=== PATIENT | male | born 1945 | race Caucasian/White ===

== ENCOUNTER 2023-11-27 16:12 | Outpatient (REF) | payer MEDICARE, SELFPAY ==
[2023-11-27 19:50] LABS: Anion Gap 7.6 mmol/L (3-11); BUN 12 mg/dL (7-18); CO2 30.4 mmol/L (21.0-32.0); CREATININE 0.8 mg/dL (0.70-1.30); Calcium 9.4 mg/dL (8.5-10.1); Chloride 99 mmol/L (98-107); Estimated GFR 89.47 (mL/min/1.73m2); Glucose 108 mg/dL (74-106); Potassium 4.4 mmol/L (3.5-5.1); Sodium 137 mmol/L (136-145)
== END 2023-11-27 16:13 | disposition home or self-care (01) ==
LOC: NCHCN 16:12
PROVIDERS: Visit Provider Family Medicine
DX: I10 Essential (primary) hypertension (principal)
CPT/HCPCS: 80048

== ENCOUNTER 2024-04-15 14:58 | Outpatient (REF) | payer MEDICARE, SELFPAY ==
--- OUTSIDE RECORDS SUMMARY | 2024-04-15 15:00 | XMS_ITS | Data Portability ---
Author Organization [facility] Address [address] [place] [address] Care Team Providers Care Appointment Manager Name Role Phone GHANSHYAM GORE Primary Care Provider Assessment Encounter Date Assessment Date Assessment LastModified by Organization Details LastModified Time 09/26/2022 09/26/2022 Patient had adult health exam in clinic on today's date. Recommend 150 minutes of physical activity per week. Recommend patient ingest at least 5 servings of fruits and vegetables per day. Encourage patient on proper hydration. Discussed preventative care including colorectal screening and immunizations. Importance of living will and advanced directives discussed. Not available 09/26/2022 07:50:32 Plan of Treatment Reminders Order Date Submit Date Provider Last Modified By Organization Details Last Modified Time Details Appointments None recorde d. Lab None recorde d. Referral gastroe nterolo gist referra l 2022 023 [facility], [address], [place], [address], 3 09:16:00 Procedures None recorde d. Surgeries None recorde d. Imaging CT, chest + abdomen + pelvis, w/wo contras t - uninten tional weight loss for last few months; concern for maligna ncy [email or web address] [facility], [address], [address], [place], [address], 3 16:10:29 CT, abdomen + pelvis, w/wo contras t 2022 023 [email or web address] [facility] - [address], [place], [address], 3 16:52:10 CT, abdomen + pelvis, w/wo contras t 2022 023 [email or web address] [email or web address] [facility], [address], [address], [place], [address], 3 16:52:09 Medication Orders Protoni x 40 mg tablet, delayed release 2022 023 [facility], [address] [place], [address], 3 07:46:30 Paxlovi d 300 mg (150 mg x 2)-100 mg tablets in a dose pack [address] [facility], [address] [place], [address], 3 16:15:02 hyoscya mine ER 0.375 mg tablet, extende d release ,12 hr [address] [facility] [address] [facility], [address] [place], [address], 3 16:30:33 Patient TargetsNo targets recorded. Patient Instructions Encounter Date Encounter Id Patient Instructions Last Modified By Organization Details Last Modified Time 09/26/2022 [id number] hearing screening* Not availa ble 09/26/2022 07:33:56 COVID-19 (coronavirus 2019) vaccine, Moderna Not available 09/26/2022 08:27:37 gastroesophageal reflux disease (GERD): care instructions Not available 09/26/2022 07:46:23 benign prostatic hyperplasia: care instructions Not available 09/26/2022 08:02:39 We discussed the following important areas of your health at today's visit: 1. Any concerns about balance and falls. 2. Any concerns about bladder control including leaking of urine. 3. Any concerns about getting adequate exercise and physical activity. Supportive programs and services are available to help you develop and maintain healthy habits in these areas. Please visit [email or web address] [email or web address] for a listing of available resources. If you have any further questions or concerns regarding the above areas of your health, please discuss at your next primary care visit or, for more urgent concerns, call us at [address] [place] [address] ([phone]) to schedule an appointment. julio Abreu Not available 09/16/2022 10:37:10 11/25/2022 [id number] Please call offi ce or seek medical attention if symptoms worsens or not improve -Patient aware of the [facility] : [facility] [address] [place] [address] mbusto Not available 11/25/2022 14:16:03 11/30/2022 [id number] abdominal pain: care instructions Not available 11/30/2022 16:41:50 12/07/2022 [id number] During your most recent Annual Preventive Visit, we discussed concerns with balance (fall preventive), bladder control (including leaking of urine) and the importance of adequate exercise and physical activity. If anything has changed or you wish to investigate other supportive programs and services available to help you develop or maintain healthy habits in these areas, please visit [email or web address] ence for a listing of available resources. If you have any further questions or concerns regarding fall prevention/balance, bladder/urine leakage or exercise, please discuss at your next primary care visit or, for more urgent concerns, call us at [address] [place] [address] ([phone]) to schedule an appointment. julio Abreu Not available 12/07/2022 07:44:29 Reason for Referral Quality Assurance Supervisor Referral for Gastroesophageal reflux disease Referring Physician: Ghanshyam Gore, Internal Medicine, Encounter Date: 09/26/2022 Results Created Date Observation Date Name Description Value Unit Range Abnormal Flag Note LastModifiedBy Organization Detail LastModifiedTime 09/13/19 23 09/12/2022 CBC WITH DIFFE RENTI AL/PL ATELE T WBC 8.3 x10e3 /uL 3.4-10 .8 Not Available [facility] ([facility]) [address] [facility], [place], [address], 09/14/2022 07:17:38 09/13/19 23 09/12/2022 CBC WITH DIFFE RENTI AL/PL ATELE T RBC 4.61 x10e6 /uL 4.14-5 .80 Not Available [facility] ([facility]) [address] [facility], [place], [address], 09/14/2022 07:17:38 09/13/19 23 09/12/2022 CBC WITH DIFFE RENTI AL/PL ATELE T hemoglobin 14.1 g/dL 13.0-1 7.7 Not Available [facility] ([facility]) [address] [place], [address], 09/14/2022 07:17:38 09/13/19 23 09/12/2022 CBC WITH DIFFE RENTI AL/PL ATELE T hematocrit 40.3 % 37.5-5 1.0 Not Available [facility] ([facility]) [address] [place], [address], 09/14/2022 07:17:38 09/13/19 23 09/12/2022 CBC WITH DIFFE RENTI AL/PL ATELE T MCV 87 fL 79-97 Not Available [facility] ([facility]) [address] [place], [address], 09/14/2022 07:17:38 09/13/19 23 09/12/2022 CBC WITH DIFFE RENTI AL/PL ATELE T MCH 30.6 pg 26.6-3 3.0 Not Available [facility] ([facility]) [address] [place], [address], 09/14/2022 07:17:38 09/13/19 23 09/12/2022 CBC WITH DIFFE RENTI AL/PL ATELE T MCHC 35.0 g/dL 31.5-3 5.7 Not Available [facility] ([facility]) [address] [facility], [place], [address], 09/14/2022 07:17:38 09/13/19 23 09/12/2022 CBC WITH DIFFE RENTI AL/PL ATELE T RDW 13.0 % 11.6-1 5.4 Not Available [facility] ([facility]) [address] [facility], [place], [address], 09/14/2022 07:17:38 09/13/19 23 09/12/2022 CBC WITH DIFFE RENTI AL/PL ATELE T platelets 218 x10e3 /uL 150-45 0 Not Available [facility] ([facility]) [address] [facility], [place], [address], 09/14/2022 07:17:38 09/13/19 23 09/12/2022 CBC WITH DIFFE RENTI AL/PL ATELE T neutrophils 65 % not estab. Not Available [facility] ([facility]) [address] [facility], [place], [address], 09/14/2022 07:17:38 09/13/19 23 09/12/2022 CBC WITH DIFFE RENTI AL/PL ATELE T lymphs 24 % not estab. Not Available [facility] ([facility]) [address] [facility], [place], [address], 09/14/2022 07:17:38 09/13/19 23 09/12/2022 CBC WITH DIFFE RENTI AL/PL ATELE T monocytes 8 % not estab. Not Available [facility] ([facility]) [address] [facility], [place], [address], 09/14/2022 07:17:38 09/13/19 23 09/12/2022 CBC WITH DIFFE RENTI AL/PL ATELE T eos 2 % not estab. Not Available [facility] ([facility]) [address] [place], [address], 09/14/2022 07:17:38 09/13/19 23 09/12/2022 CBC WITH DIFFE RENTI AL/PL ATELE T basos 1 % not estab. Not Available [facility] ([facility]) [address] [facility], [place], [address], 09/14/2022 07:17:38 09/13/19 23 09/12/2022 CBC WITH DIFFE RENTI AL/PL ATELE T immature cells INSIDE SALES Not Available [facility] ([facility]) [address] [facility], [place], [address], 09/14/2022 07:17:38 09/13/19 23 09/12/2022 CBC WITH DIFFE RENTI AL/PL ATELE T neutrophils (absolute) 5.5 x10e3 /uL 1.4-7. 0 Not Available [facility] ([facility]) [address] [place], [address], 09/14/2022 07:17:38 09/13/19 23 09/12/2022 CBC WITH DIFFE RENTI AL/PL ATELE T lymphs (absolute) 2.0 x10e3 /uL 0.7-3. 1 Not Available [facility] ([facility]) [address] [place], [address], 09/14/2022 07:17:38 09/13/19 23 09/12/2022 CBC WITH DIFFE RENTI AL/PL ATELE T monocytes(ab solute) 0.7 x10e3 /uL 0.1-0. 9 Not Available [facility] ([facility]) [address] [place], [address], 09/14/2022 07:17:38 09/13/19 23 09/12/2022 CBC WITH DIFFE RENTI AL/PL ATELE T eos (absolute) 0.2 x10e3 /uL 0.0-0. 4 Not Available [facility] ([facility]) [address] [facility], [place], [address], 09/14/2022 07:17:38 09/13/19 23 09/12/2022 CBC WITH DIFFE RENTI AL/PL ATELE T baso (absolute) 0.0 x10e3 /uL 0.0-0. 2 Not Available [facility] ([facility]) [address] [facility], [place], [address], 09/14/2022 07:17:38 09/13/19 23 09/12/2022 CBC WITH DIFFE RENTI AL/PL ATELE T immature granulocytes 0 % not estab. Not Available [facility] ([facility]) [address] [facility], [place], [address], 09/14/2022 07:17:38 09/13/19 23 09/12/2022 CBC WITH DIFFE RENTI AL/PL ATELE T immature grans (abs) 0.0 x10e3 /uL 0.0-0. 1 Not Available [facility] ([facility]) [address] [facility], [place], [address], 09/14/2022 07:17:38 09/13/19 23 09/12/2022 CBC WITH DIFFE RENTI AL/PL ATELE T NRBC INSIDE SALES Not Available [facility] ([facility]) [address] [facility], [place], [address], 09/14/2022 07:17:38 09/13/19 23 09/12/2022 CBC WITH DIFFE RENTI AL/PL ATELE T hematology comments: INSIDE SALES Not Available [facility] ([facility]) [address] [facility], [place], [address], 09/14/2022 07:17:38 09/13/19 23 09/13/2022 COMP. METAB OLIC PANEL (14) glucose 91 mg/dL 70-99 Not Available [facility] ([facility]) [address] [place], [address], 09/14/2022 07:17:39 09/13/19 23 09/13/2022 COMP. METAB OLIC PANEL (14) BUN 13 mg/dL 8-27 Not Available [facility] ([facility]) [address] [facility] [place], [address], 09/14/2022 07:17:39 09/13/19 23 09/13/2022 COMP. METAB OLIC PANEL (14) creatinine 0.76 mg/dL 0.76-1 .27 Not Available [facility] ([facility]) [address] [facility] [place], [address], 09/14/2022 07:17:39 09/13/19 23 09/13/2022 COMP. METAB OLIC PANEL (14) eGFR 91 mL/mi n/1.7 3 >59 Not Available [facility] ([facility]) [address] [facility], [place], [address], 09/14/2022 07:17:39 09/13/19 23 09/13/2022 COMP. METAB OLIC PANEL (14) BUN/creatini ne ratio 17 10-24 Not Available [facility] ([facility]) [address] [facility] [place], [address], 09/14/2022 07:17:39 09/13/19 23 09/13/2022 COMP. METAB OLIC PANEL (14) sodium 137 mmol/ L 134-14 4 Not Available [facility] ([facility]) [address] [facility] [place] [place], [address], 09/14/2022 07:17:39 09/13/19 23 09/13/2022 COMP. METAB OLIC PANEL (14) potassium 4.9 mmol/ L 3.5-5. 2 Not Available [facility] ([facility]) [address] [facility] [place], [address], 09/14/2022 07:17:39 09/13/19 23 09/13/2022 COMP. METAB OLIC PANEL (14) chloride 99 mmol/ L 96-106 Not Available [facility] ([facility]) [address] [facility] [place], [address], 09/14/2022 07:17:39 09/13/19 23 09/13/2022 COMP. METAB OLIC PANEL (14) carbon dioxide, total 26 mmol/ L 20-29 Not Available [facility] ([facility]) [address] [facility], [place], [address], 09/14/2022 07:17:39 09/13/19 23 09/13/2022 COMP. METAB OLIC PANEL (14) calcium 9.6 mg/dL 8.6-10 .2 Not Available [facility] ([facility]) [address] [facility] [place], [address], 09/14/2022 07:17:39 09/13/19 23 09/13/2022 COMP. METAB OLIC PANEL (14) protein, total 7.1 g/dL 6.0-8. 5 Not Available [facility] ([facility]) [address] [facility] [place], [address], 09/14/2022 07:17:39 09/13/19 23 09/13/2022 COMP. METAB OLIC PANEL (14) albumin 4.3 g/dL 3.7-4. 7 Not Available [facility] ([facility]) [address] [facility] [place] [place], [address], 09/14/2022 07:17:39 09/13/19 23 09/13/2022 COMP. METAB OLIC PANEL (14) globulin, total 2.8 g/dL 1.5-4. 5 Not Available [facility] ([facility]) [address] [facility] [place] [place], [address], 09/14/2022 07:17:39 09/13/19 23 09/13/2022 COMP. METAB OLIC PANEL (14) A/G ratio 1.5 1.2-2. 2 Not Available [facility] ([facility]) [address] [facility] [place] [place], [address], 09/14/2022 07:17:39 09/13/19 23 09/13/2022 COMP. METAB OLIC PANEL (14) bilirubin, total 0.5 mg/dL 0.0-1. 2 Not Available [facility] ([facility]) [address] [facility] [place], [address], 09/14/2022 07:17:39 09/13/19 23 09/13/2022 COMP. METAB OLIC PANEL (14) alkaline phosphatase 91 IU/L 44-121 Not Available [facility] ([facility]) [address] [facility], [place], [address], 09/14/2022 07:17:39 09/13/19 23 09/13/2022 COMP. METAB OLIC PANEL (14) AST (SGOT) 18 IU/L 0-40 Not Available [facility] ([facility]) [address] [facility] [place] [place], [address], 09/14/2022 07:17:39 09/13/19 23 09/13/2022 COMP. METAB OLIC PANEL (14) ALT (SGPT) 12 IU/L 0-44 Not Available [facility] ([facility]) [address] [place], [address], 09/14/2022 07:17:39 09/13/19 23 09/12/2022 UA/M W/RFL X CULTU REMALLORYI NE specific gravity 1.009 1.005- 1.030 Not Available [facility] ([facility]) [address] [place], [address], 09/14/2022 07:17:40 09/13/19 23 09/12/2022 UA/M W/RFL X CULTU RE, ROUTI NE pH 7.5 5.0-7. 5 Not Available [facility] ([facility]) [address] [place], [address], 09/14/2022 07:17:40 09/13/19 23 09/12/2022 UA/M W/RFL X CULTU RE, ROUTI NE urine-color YELLOW yellow Not Available [facility] ([facility]) [address] [place], [address], 09/14/2022 07:17:40 09/13/19 23 09/12/2022 UA/M W/RFL X CULTU RE, ROUTI NE appearance CLEAR clear Not Available [facility] ([facility]) [address] [place], [address], 09/14/2022 07:17:40 09/13/19 23 09/12/2022 UA/M W/RFL X CULTU RE, ROUTI NE WBC esterase NEGATI VE negati ve Not Available [facility] ([facility]) [address] [place], [address], 09/14/2022 07:17:40 09/13/19 23 09/12/2022 UA/M W/RFL X CULTU RE, ROUTI NE protein NEGATI VE negati ve/tra ce Not Available [facility] ([facility]) [address] [place], [address], 09/14/2022 07:17:40 09/13/19 23 09/12/2022 UA/M W/RFL X CULTU RE, ROUTI NE glucose NEGATI VE negati ve Not Available [facility] ([facility]) [address] [place], [address], 09/14/2022 07:17:40 09/13/19 23 09/12/2022 UA/M W/RFL X CULTU RE, ROUTI NE ketones NEGATI VE negati ve Not Available [facility] ([facility]) [address] [place], [address], 09/14/2022 07:17:40 09/13/19 23 09/12/2022 UA/M W/RFL X CULTU RE, ROUTI NE occult blood NEGATI VE negati ve Not Available [facility] ([facility]) [address] [facility], [place], [address], 09/14/2022 07:17:40 09/13/19 23 09/12/2022 UA/M W/RFL X CULTU RE, ROUTI NE bilirubin NEGATI VE negati ve Not Available [facility] ([facility]) [address] [facility], [place], [address], 09/14/2022 07:17:40 09/13/19 23 09/12/2022 UA/M W/RFL X CULTU RE, ROUTI NE urobilinogen ,semi-qn 0.2 mg/dL 0.2-1. 0 Not Available [facility] ([facility]) [address] [facility], [place], [address], 09/14/2022 07:17:40 09/13/19 23 09/12/2022 UA/M W/RFL X CULTU RE, ROUTI NE nitrite, urine NEGATI VE negati ve Not Available [facility] ([facility]) [address] [facility], [place], [address], 09/14/2022 07:17:40 09/13/19 23 09/12/2022 UA/M W/RFL X CULTU RE, ROUTI NE microscopic examination COMMEN T Micro scopi c follo ws if indic ated. Not Available [facility] ([facility]) [address] [facility], [place], [address], 09/14/2022 07:17:40 09/13/19 23 09/12/2022 UA/M W/RFL X CULTU RE, ROUTI NE microscopic examination SEE BELOW: Micro scopi c was indic ated and was perfo rmed. Not Available [facility] ([facility]) [address], [place], [address], 09/14/2022 07:17:40 09/13/19 23 09/12/2022 UA/M W/RFL X CULTU RE, ROUTI NE WBC NONE SEEN /hpf 0 - 5 Not Available [facility] ([facility]) [address], [place], [address], 09/14/2022 07:17:40 09/13/19 23 09/12/2022 UA/M W/RFL X CULTU RE, ROUTI NE RBC NONE SEEN /hpf 0 - 2 Not Available [facility] ([facility]) [address] [facility], [place], [address], 09/14/2022 07:17:40 09/13/19 23 09/12/2022 UA/M W/RFL X CULTU RE, ROUTI NE epithelial cells (non renal) NONE SEEN /hpf 0 - 10 Not Available [facility] ([facility]) [address], [place], [address], 09/14/2022 07:17:40 09/13/19 23 09/12/2022 UA/M W/RFL X CULTU RE, ROUTI NE epithelial cells (renal) INSIDE SALES Not Available [facility] ([facility]) [address] [facility], [place], [address], 09/14/2022 07:17:40 09/13/19 23 09/12/2022 UA/M W/RFL X CULTU RE, ROUTI NE casts NONE SEEN /lpf none seen Not Available [facility] ([facility]) [address] [facility], [place], [address], 09/14/2022 07:17:40 09/13/19 23 09/12/2022 UA/M W/RFL X CULTU RE, ROUTI NE cast type INSIDE SALES Not Available [facility] ([facility]) [address] [facility], [place], [address], 09/14/2022 07:17:40 09/13/19 23 09/12/2022 UA/M W/RFL X CULTU RE, ROUTI NE crystals INSIDE SALES Not Available [facility] ([facility]) [address] [facility], [place], [address], 09/14/2022 07:17:40 09/13/19 23 09/12/2022 UA/M W/RFL X CULTU RE, ROUTI NE crystal type INSIDE SALES Not Available [facility] ([facility]) [address] [facility], [place], [address], 09/14/2022 07:17:40 09/13/19 23 09/12/2022 UA/M W/RFL X CULTU RE, ROUTI NE mucus threads INSIDE SALES Not Available [facility] ([facility]) [address] [facility], [place], [address], 09/14/2022 07:17:40 09/13/19 23 09/12/2022 UA/M W/RFL X CULTU RE, ROUTI NE bacteria NONE SEEN none seen/f ew Not Available [facility] ([facility]) [address] [facility], [place], [address], 09/14/2022 07:17:40 09/13/19 23 09/12/2022 UA/M W/RFL X CULTU RE, ROUTI NE yeast INSIDE SALES Not Available [facility] ([facility]) [address] [facility], [place], [address], 09/14/2022 07:17:40 09/13/19 23 09/12/2022 UA/M W/RFL X CULTU RE, ROUTI NE trichomonas INSIDE SALES Not Available [facility] ([facility]) [address] [facility], [place], [address], 09/14/2022 07:17:40 09/13/19 23 09/12/2022 UA/M W/RFL X CULTU RE, ROUTI NE comment INSIDE SALES Not Available [facility] ([facility]) [address] [facility], [place], [address], 09/14/2022 07:17:40 09/13/19 23 09/12/2022 UA/M W/RFL X CULTU RE, ROUTI NE urinalysis reflex COMMEN T This speci men will not refle x to a Urine Cultu re. Not Available [facility] ([facility]) [address] [facility], [place], [address], 09/14/2022 07:17:40 09/13/19 23 09/13/2022 LIPID PANEL cholesterol, total 164 mg/dL 100-19 9 Not Available [facility] ([facility]) [address] [facility], [place], [address], 09/14/2022 07:17:41 09/13/19 23 09/13/2022 LIPID PANEL triglyceride s 88 mg/dL 0-149 Not Available [facility] ([facility]) [address] [facility], [place], [address], 09/14/2022 07:17:41 09/13/19 23 09/13/2022 LIPID PANEL HDL cholesterol 65 mg/dL >39 Not Available [facility] ([facility]) [address] [facility], [place], [address], 09/14/2022 07:17:41 09/13/19 23 09/13/2022 LIPID PANEL VLDL cholesterol renetta 16 mg/dL 5-40 Not Available [facility] ([facility]) [address] [place], [address], 09/14/2022 07:17:41 09/13/19 23 09/13/2022 LIPID PANEL LDL chol calc ([facility]) 83 mg/dL 0-99 Not Available [facility] ([facility]) [address] [place], [address], 09/14/2022 07:17:41 09/13/1909/13/2022 LIPID PANEL comment: INSIDE SALES Not Available [facility] ([facility]) [address] [facility], [place], [address], 09/14/2022 07:17:41 09/13/1909/13/2022 HEMOG LOBIN A1C hemoglobin A1C 5.5 % 4.8-5. 6 Predi abete s: 5.7 - 6.4 Diabe diana: >6.4 Glyce jeremiah contr ol for adult s with diabe diana: <7.0 Not Available [facility] ([facility]) [address] [facility], [place], [address], 09/14/2022 07:17:42 09/13/1909/13/2022 TSH TSH 4.750 uIU/m L 0.450- 4.500 above high normal Not Available [facility] ([facility]) [address] [facility], [place], [address], 09/14/2022 07:17:43 09/13/1909/13/2022 VITAM IN D, 25-HY DROXY vitamin D, 25-hydroxy 33.3 NG/mL 30.0-1 00.0 Vitam in D defic iency has been defin ed by the Insti tute of Medic ine and an Endoc rine Socie ty pract ice guide line as a level of serum 25-OH vitam in D less than 20 ng/mL (1,2) . The Endoc rine Socie ty went on to furth er defin e vitam in D insuf ficie ncy as a level betwe en 21 and 29 ng/mL (2). 1. IOM (Inst itute of Medic ine). 2010. Dieta ry refer ence drew es for calci um and D. Marquise seth [place]: The Natio nal [facility] Press . 2. Shruthi martinez MF, Lavon bennett [place], Christian off-F errar i LANE, et al. Evalu ation , treat ment, and preve ntion of vitam in D defic iency : an Endoc rine Socie ty clini renetta pract ice guide line. JCEM. 2010; 96(7) :1911 -30. Not Available [facility] ([facility]) [address] [facility], [place], [address], 09/14/2022 07:17:44 09/27/19 23 09/26/2022 heari ng scree yvan* Unknown Analyte normal Not Available [address], [address], 09/16/2022 10:37:12 09/27/19 23 09/26/2022 heari ng scree yvan* Unknown Analyte normal Not Available [address], [address], 09/16/2022 10:37:12 09/27/19 23 09/26/2022 heari ng scree yvan* Unknown Analyte normal Not Available [address], [address], 09/16/2022 10:37:12 09/27/19 23 09/26/2022 heari ng scree yvan* Unknown Analyte normal Not Available [address], [address], 09/16/2022 10:37:12 09/27/19 23 09/26/2022 heari ng scree yvan* Unknown Analyte normal Not Available [address], [address], 09/16/2022 10:37:12 09/27/19 23 09/26/2022 heari ng scree yvan* Unknown Analyte normal Not Available [address], [address], 09/16/2022 10:37:12 09/27/19 23 09/26/2022 heari ng scree yvan* Unknown Analyte abnorm al Not Available [facility] [address] [place], [address], 09/16/2022 10:37:12 09/27/19 23 09/26/2022 cole santoro* Unknown Analyte abnorm al Not Available [facility] [address] [place], [address], 09/16/2022 10:37:12 12/06/19 23 12/01/2022 CT, abdom en + pelvi s, w/o contr ast No observ ation record ed. Not Available 2022 16:49:24 12/06/19 23 12/01/2022 elect noah morsegr am No observ ation record ed. Not Available 2022 16:49:25 Result Notes None recorded. 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 Omaira bui MD [address] [place], [address], [place] - [facility] 0 07:18:16 Chronic obstruct eugenia pulmonar y disease 33874711 Active 2019 HCC: J44.9 Ines Foreman [facility] 0 11:36:23 Cervico- occipita l neuralgi a 79556696 Active 2019 [place], [place] - [facility] 0 07:39:03 Essentia l hyperten kiko 40447038 Active 2019 [facility] 0 07:48:44 Gastroes ophageal reflux disease 987402418 Active 2022 GHANSHYAM GORE MD [address] [place], [address], [place] - [facility] 3 07:45:25 Benign prostati c hyperpla gail 899697333 Active 2022 GHANSHYAM GORE MD [facility] [place], [address], [place] - [facility] 07:51:51 Acute viral pharyngi tis 869323171 Active 2022 JACOBO MARIE, [facility] [employer] [address] [place], [address], [place] - [facility] 13:33:36 COVID-19 464032485 Active 2022 JACOBO MARIE, [facility]RE[facility] [employer] [address] [place] [address], [address], [place] - [facility] 13:59:11 Unintent ional weight loss 161427306 Active 2022 JACOBO CAGEBRENDA, STRE[facility] [employer] INSPECT[employer] [address] [place] [address], [address], [place] - [facility] 14:03:45 Abdomina l pain 24707345 Active 2022 GHANSHYAM GORE MD [address] [place] [address], [address], [place] - [facility] 16:34:39 Hyperlip idemia 49958668 Active 2014 Omaira bui MD [address] [place] [address], [address], [place] MD - [facility] 15:21:09 Large prostate 517382434 Active 2014 Omaira bui MD [address] [place] [address], [address], [place] - [facility] 15:20:37 Atherosc lerosis of aorta 10393342 Active 2015 [facility] Nidia Bryan [place], [place] - [facility] 13:51:29 Situatio n with explicit context Completed 201607/16/2018 ICD10: Z96.642 SNOMED: 120914961 106 Descripti on: History of total left hip arthropla sty W/U Status: confirmed Omaira bui MD [address] [place], [address], [facility] - [facility] 15:20:54 Senile purpura 83914548 Active 2016 [facility] Nidia Bryan [place], [place] - [facility] 13:51:24 Body measurem ent finding Completed 201607/16/2018 ICD10: Z68.22 SNOMED: 089654331 Descripti on: BMI 22.0-22.9 , adult W/U Status: confirmed Omaira bui MD [address] [place], [address], [facility] - [facility] 15:20:44 Problem Notes None recorded. Procedures Surgical History Date Name Laterality Status Provider Name and Address Organization Details Recorded Time 12/08/19 23 hospital discharge med review completed Jerry Frazier MD - [facility] 12/07/2022 07:44:29 09/13/19 23 Phlebotomy Blood Draw completed [facility] 09/12/2022 10:18:29 04/26/19 23 Cryosurgery completed CHRISTY KEEN PA-C [address] [place], [address], [place] - [facility] 04/26/2022 12:24:24 04/12/20 22 Cryosurgery completed CHRISTY KEEN PA-C [address] [place], [address], [place] - [facility] 04/18/2022 09:37:48 02/29/20 22 Phlebotomy Blood Draw completed Stacy Walls [facility] 02/28/2022 07:27:39 08/24/19 22 Phlebotomy Blood Draw completed Cinthya Jones [facility] 08/23/2021 08:37:28 03/01/20 21 Phlebotomy Blood Draw completed Stacy Walls [place] - [facility] 03/01/2021 07:03:41 04/26/20 21 Phlebotomy Blood Draw [place] [facility] [place] [facility] 08/17/2020 10:03:14 02/20/20 20 Preventative Visit Discussed with Patient completed [place] [facility] 02/20/2020 07:25:16 02/10/20 20 Phlebotomy Blood Draw completed Stacy Walls [place] - [facility] 02/10/2020 07:42:22 08/13/19 20 Venipuncture completed Stacy Walls [place] - [facility] 08/13/2019 07:18:27 05/23/19 20 Cryosurgery [place] Irma Donis [place] - [facility] 05/23/2019 14:59:54 04/04/20 19 Cryosurgery completed Jennie Scherer [place] - [facility] 04/04/2019 14:14:27 02/19/20 19 Preventative Visit Discussed with Patient completed Lexi Gee [place] - [facility] 02/18/2019 08:17:16 02/12/20 19 Venipuncture completed Hilaria Steinberg [place] - [facility] 02/11/2019 09:09:38 03/01/20 16 total replacement of hip completed [place] Shar[place] - [facility] 08/13/2019 14:16:19 10/23/19 14 Colonoscopy completed Constance Sharif [place] - [facility] 02/13/2020 15:30:43 04/24/18 90 hernia repair completed Constance Sharif [place] - [facility] 08/13/2019 14:15:57 Imaging Results Imaging Date Name Status LastModified by Organization Details LastModified Time 12/01/2022 CT, abdomen + pelvis, w/o contrast completed Information not available 12/05/2022 16:49:24 12/01/2022 electrocardiogram completed Informa tion not available 12/05/2022 16:49:25 Procedure Notes None recorded. Medical Equipment None Reported. Allergies No known drug allergies Medications Name Sig Start Date Stop Date Status Note LastModified by Organization Details LastModified Time amoxicillin 500 mg capsule TAKE FOUR CAPSULES BY MOUTH ONE HOUR BEFORE APPOINTME NT active Not Available Not Available No t Available prednisone 10 mg tablet 02/12 completed Not Available Not Available Not Available Gas-X Extra Strength 125 mg chewable tablet Take by oral route. active Not Available Not Available No t Available simvastatin 10 mg tablet TAKE 1 TABLET BY MOUTH ONCE DAILY active Not Available Not Available No t Available aspirin 81 mg tablet,staci yed release Take 1 tablet every day by oral route. 08/30 completed Not Available Not Available Not Available triamcinolo ne acetonide 0.1 % topical cream APPLY A THIN LAYER TO THE AFFECTED AREA(S) on legs and arms BY TOPICAL ROUTE 2 TIMES PER DAY x1 week then once per day x1 week 09/26 completed Not Available Not Available Not Available amoxicillin 500 mg tablet 4 tablets 1 hour before procedure 08/18 completed Not Available Not Available Not Available hyoscyamine ER 0.375 mg tablet,exte nded release,12 hr Take by oral route for 20 days. active Not Available Not Available No t Available tamsulosin 0.4 mg capsule TAKE 1 CAPSULE BY MOUTH ONCE DAILY DIRECTED FOR 90 DAYS 03/07 completed Not Available Not Available Not Available pantoprazol e 40 mg tablet,staci yed release TAKE 1 TABLET BY MOUTH ONCE DAILY DIRECTED active Not Available Not Available No t Available triamcinolo ne acetonide 0.1 % topical ointment APPLY A THIN LAYER TO THE AFFECTED AREA(S) BY TOPICAL ROUTE 2 TIMES PER DAY 08/18 completed Not Available Not Available Not Available Viagra 100 mg tablet Take 1 tablet every day by oral route for 30 days. 03/07 completed Not Available Not Available Not Available finasteride 5 mg tablet TAKE 1 TABLET BY MOUTH ONCE DAILY DIRECTED FOR 90 DAYS 09/26 completed Not Available Not Available Not Available Fluzone High-Dose 2018- (PF) 180 mcg/0.5 mL intramuscul ar syringe 02/21 completed Not Available Not Available Not Available Fluad Quad (6 5yr up)(PF) 60 mcg (15 mcg x 4)/0.5mL IM syringe 02/12 completed Not Available Not Available Not Available Paxlovid 300 mg (150 mg x 2)-100 mg tablets in a dose pack Take 1 dose pk twice a day by oral route as directed. 11/30 completed Not Available Not Available Not Available Vitals Date Recorded Body height Body mass index (BMI) Body weight Respiratory rate Body temperature Oxygen saturation Oxygen saturation in Arterial blood by Pulse oximetry Heart rate Systolic blood pressure Diastolic blood pressure Provider Name and Address Organization Details Last Updated DateTime 3 172.72 cm 21 kg/m2 65447.4 7 g 16 /min 97.5 [degF] 98 % 98 % 98 /min 142 mm[Hg] 78 mm[Hg] Jerry cuevas [facility] 3 07:29:11 Date Recorded Body height Body mass index (BMI) Body weight Respiratory rate Body temperature Oxygen saturation Oxygen saturation in Arterial blood by Pulse oximetry Heart rate Systolic blood pressure Diastolic blood pressure Provider Name and Address Organization Details Last Updated DateTime 3 172.72 cm 20.5 kg/m2 42319.9 7 g 16 /min 97.6 [degF] 98 % 98 % 99 /min 148 mm[Hg] 78 mm[Hg] Jerry Mo [facility] 3 14:29:27 Date Recorded Body height Body mass index (BMI) Body weight Body temperature Heart rate Oxygen saturation Oxygen saturation in Arterial blood by Pulse oximetry Systolic blood pressure Diastolic blood pressure Systolic blood pressure Diastolic blood pressure Provider Name and Address Organization Details Last Updated DateTime 3 172.72 cm 19.9 kg/m2 33238.6 g 99.3 [degF] 120 /min 97 % 97 % 180 mm[Hg] 79 mm[Hg] 162 mm[Hg] 72 mm[Hg] [facility] 3 13:44:55 Date Recorded Body height Body mass index (BMI) Body weight Respiratory rate Body temperature Oxygen saturation Oxygen saturation in Arterial blood by Pulse oximetry Heart rate Systolic blood pressure Diastolic blood pressure Provider Name and Address Organization Details Last Updated DateTime 3 172.72 cm 19.9 kg/m2 44417.8 8 g 16 /min 97.8 [degF] 98 % 98 % 99 /min 142 mm[Hg] 84 mm[Hg] Jerry Mo [facility] 3 16:18:43 Date Recorded Body height Body mass index (BMI) Body weight Body temperature Heart rate Oxygen saturation Oxygen saturation in Arterial blood by Pulse oximetry Systolic blood pressure Diastolic blood pressure Systolic blood pressure Diastolic blood pressure Provider Name and Address Organization Details Last Updated DateTime 3 172.72 cm 19.6 kg/m2 47747.1 3 g 98.8 [degF] 105 /min 96 % 96 % 164 mm[Hg] 89 mm[Hg] 150 mm[Hg] 84 mm[Hg] [facility] 3 14:30:33 Social History Question Answer Notes LastModified by Organizat ion Details LastModified Time Tobacco Smoking Status [facility]/07/[facility]22 08:27:37 Do You Have An Advance Directive? No Information not available 08/19/2019 What Is Your Level Of Alcohol Consumption? Moderate Information not available 02/18/2019 What Is Your Level Of Caffeine Consumption? Occasional Information not available 02/18/2019 Are You A Caregiver? No Information not available 02/18/2019 How Much Tobacco Do You Chew? None Information not available 02/18/2019 Are You Currently Employed? No Information not available 02/18/2019 What Type Of Diet Are You Following? REGULAR Information not available 02/18/2019 Do You Or Have You Ever Used E-cigarettes Or Vape? 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 16+yearssince andrew krishnan 1 Information not available 03/08/2021 Hobbies/Activitie s Golfing, Working On Cars Information not available 08/13/2019 Living Will Yes Located In [facility] 07/06/2017 Information not available 02/18/2019 Power Of Talend Developer Yes Located In [facility] 07/25/1999 Information not available 02/18/2019 Health Care Surrogate No Information not available 08/19/2019 Five Wishes No Information n ot available 08/19/2019 DNR No Information no t available 08/19/2019 Guardian No Information no t available 08/19/2019 Total Number In Household 2 Information not available 02/18/2019 Where Are You From? [place] Information not available 02/18/2019 Do You Have Local Family? No Information not available 02/18/2019 City/neighborhood In Which You Live [place] Information no t available 02/18/2019 Shinto Preference Sikh Information not available 02/18/2019 What Is Your Support System In The Event Of A Medical Crisis? Family Information not available 08/13/2019 Domestic Violence No Informa tion not available 02/18/2019 Do You Have Any Financial Concerns Related To The Medications You Are Taking? No Information not available 02/18/2019 Do You Have Any Other Barriers Related To The Medications You Are Taking? No Information not available 02/18/2019 Do You Have Any Communication Barriers? None Information not available 02/18/2019 Does The Family Or Caregiver Have Any Communication Barriers? None Information not available 02/18/2019 Type Of Exercise Walking 2.5 Miles 3 X Weekly , Golf Information not available 08/13/2019 During The Past 4 Weeks, How Many Drinks Of Wine, Beer, Or Other Alcoholic Beverages Have You Consumed? 10+ Drinks/week Information not available 02/18/2019 Marital Status Informatio n not available 02/18/2019 What Was The Date Of Your Most Recent Tobacco Screening? 09/26/2022 [email or web address] Information not available 09/26/2022 How Many Children Do You Have? 0 Information not available 02/18/2019 Do You Have Any Pets? No Information not available 02/18/2019 Seat Belts Used Routinely Yes Information not available 02/18/2019 Are You Sexually Active? No Information not available 02/18/2019 Smoke Alarm In Home Yes Information not available 02/18/2019 Do You Or Have You Ever Used Smokeless Tobacco? Never Used Smokeless Tobacco Information not available 08/13/2019 How Much Tobacco Do You Smoke? 2 PPD ariella 1 Information not available 07/16/2018 General Stress Level Low Information not available 02/18/2019 Do You Use Sunscreen Routinely? No Information not available 02/18/2019 Has Tobacco Cessation Counseling Been Provided? No ariella 1 Information not available 07/16/2018 How Many Years Have You Smoked Tobacco? 10 ariella 1 Information not available 07/16/2018 Sex: Unknown Functional Status Question Answer Note LastModified by Organization D etails LastModified Time Are you able to care for yourself? Yes Information not available 02/18/2019 What is your exercise level? Moderate Information not available 02/18/2019 Mental Status None recorded. Family History Relationship Description Onset Age of this Age Resolved Age Notes LastModified by Organization Details LastModified Time Father Father 27 in WWII Not available 08/13/2019 14:11:55 Mother Cerebrovascu lar accident 79 Not available 14:12:11 Brother Family history of malignant neoplasm 76 x2 both with heart diseas e as well Not available 03/08/2021 07:39:00 Medical History No medical history recorded. Immunizations Vaccine Type Date Status Note Provider Nam e and Address Organization Details Recorded Time zoster recombinant 2 completed Brina dillon MD - [facility] 05/10/2021 08:27:32 COVID-19, mRNA, LNP-S, bivalent, PF, 50 mcg/0.5 mL or 25mcg/0.25 mL dose 3 completed GHANSHYAM GORE MD [address] [place], [address], [facility] - [facility] 09/26/2022 08:26:44 pneumococcal polysaccharide PPV23 7 completed Constance dillon MD - [facility] 08/18/2020 14:41:18 Td (adult) 3 completed Constance [facility] - [facility] 08/18/2020 14:41:18 Pneumococcal conjugate PCV 13 8 completed Constance dillon, [facility] 08/18/2020 14:41:18 Influenza, high-dose, trivalent, PF 5 completed Not Available [facility] 03/12/2018 15:07:06 Influenza, high-dose, trivalent, PF 7 completed Constance dillon, [facility] 08/18/2020 14:41:18 Influenza, high-dose, trivalent, PF 8 completed Lexi Gee null, [facility] 02/18/2019 08:21:57 Influenza, high-dose, trivalent, PF 6 completed Lexi Gee null, [facility] 02/18/2019 08:21:57 Influenza, high-dose, trivalent, PF 9 completed Constance dillon, [facility] 08/18/2020 14:41:18 Influenza, high-dose, trivalent, PF 0 completed Constance dillon, [facility] 08/18/2020 14:41:18 SARS-COV-2 (COVID-19) vaccine, UNSPECIFIED 1 completed Jerry dillon, [facility] 03/07/2022 08:22:22 SARS-COV-2 (COVID-19) vaccine, UNSPECIFIED 1 completed Jerry dillon, [facility] 03/07/2022 08:22:22 SARS-COV-2 (COVID-19) vaccine, UNSPECIFIED 1 completed Jerry dillon, [facility] 03/07/2022 08:22:22 Influenza, high-dose, trivalent, PF 1 completed Jerry dillon, [facility] 03/07/2022 08:22:22 COVID-19, mRNA, LNP-S, PF, 30 mcg/0.3 mL dose 1 completed Jerry [facility]illon [facility] - [facility] 03/07/2022 08:22:22 COVID-19, mRNA, LNP-S, PF, 30 mcg/0.3 mL dose 1 completed [facility]illon [facility] - [facility] 03/07/2022 08:22:22 COVID-19, mRNA, LNP-S, PF, 100 mcg/0.5mL dose or 50 mcg/0.25mL dose 2 completed GHANSHYAM GORE MD [address] [place], [address], [facility] - [facility] 03/07/2022 09:03:44 Influenza, split virus, quadrivalent, preservative 2 completed GHANSHYAM GORE MD [address] [place], [address], [place] - [facility] 03/07/2022 09:03:58 zoster recombinant 1 completed Constance dillon [place] - [facility] 03/08/2021 07:52:21 Past Encounters Encounter ID Performer Location Encounter Start Date Encounter Closed Date Diagnosis/Indication Diagnosis SNOMED-CT Code Diagnosis ICD10 Code [id number] [address] [address] 02/11/2019 08:39:06 02/11/2019 11:45:05 Hyperlipidemia 08038145 E78.5 Hypothyroidism 75556928 E03.9 [id number] Omaira ross MD [address] [address] 02/18/2019 08:15:43 02/18/2019 09:14:52 Adult health examination 789157026 Z00.01 Risk asses sment status 522622708 Z53.8 Advance di rective discussed with patient 836595069 Z71.89 Counseling 303418094 Z71 .89 Medication review done 389365649 Z76.89 Risk assessment done 712 591849 Z76.89 Hyperlipidemia 59095427 E78.5 Atheroscle rosis of aorta 36770408 I70.0 Hypothyroidism 84536044 E03.9 Large prostate 883689560 N40.0 Skin lesion 57997362 L98 .9 Senile purpura 53895559 D69.2 Elevated blood-pressure reading without diagnosis of hypertension 529475882 R03.0 [id number] HUE JIMENEZ [address] [address] 04/04/2019 13:42:51 04/04/2019 14:26:09 Porokeratosis 564663392 Q82.8 [id number] HUE JIMENEZ [address] [address] 05/23/2019 14:42:20 05/23/2019 15:15:48 Porokeratosis 624429728 Q82.8 Lentigo - freckle 215506 006 L81.[id number] [address] 08/13/2019 07:12:31 08/13/2019 07:38:17 Hypothyroidism 10689885 E03.9 Atheroscle rosis of aorta 63975226 I70.0 Hyperlipidemia 23094517 E78.5 [id number] Omaira ross MD [address] [address] 08/19/2019 05:41:38 08/19/2019 10:10:00 Hyperlipidemia 29877645 E78.5 Subclinica l hypothyroidism 99184412 E02 Atheroscle rosis of aorta 40657947 I70.0 Large prostate 699325911 N40.0 Senile purpura 37523280 D69.2 Ex-smoker 8426525 Z87.[id number] [address] 02/10/2020 07:36:35 02/10/2020 08:10:01 Subclinical hypothyroidism 03280807 E02 Hyperlipidemia 20255781 E78.5 [id number] Karen Lemons [address] [address] 02/10/2020 07:36:55 02/10/2020 08:24:52 Ex-cigarette smoker 895293541 Z87.120 [id number] Omaira ross MD [facility] [address] [place] [address] 02/20/2020 07:15:30 02/20/2020 08:01:24 Adult health examination 238721734 Z00.00 Medication review done 904862315 Z76.89 Risk assessment done 712 284033 Z76.89 Advance di rective discussed with patient 758447334 Z71.89 Hyperlipidemia 60881948 E78.5 Subclinica l hypothyroidism 46105516 E02 Atheroscle rosis of aorta 22688473 I70.0 Chronic ob structive pulmonary disease 50642431 J44.9 Large prostate 539720903 N40.0 Senile purpura 62104042 D69.2 Cervico-oc cipital neuralgia 18586565 M54.81 Hepatitis C screening 41 5317702 Z11.59 Essential hypertension 03421324 I10 [id number] [address] 9 08/17/2020 07:04:33 08/17/2020 10:07:52 Subclinical hypothyroidism 91688179 E02 Hyperlipidemia 09283292 E78.5 Hepatitis C screening 41 2950677 Z11.59 [id number] Omaira ross MD [place] [address] 08/24/2020 07:45:56 08/24/2020 08:30:58 Hyperlipidemia 02683519 E78.5 Essential hypertension 91867337 I10 Subclinica l hypothyroidism 95483652 E02 Atheroscle rosis of aorta 01099854 I70.0 Chronic ob structive pulmonary disease 61147637 J44.9 Large prostate 684697452 N40.0 Cervico-oc cipital neuralgia 83088069 M54.81 Senile purpura 81708307 D69.2 Adult heal th examination 867992603 Z00.00 Medication review done 092467699 Z76.89 Risk assessment done 712 894118 Z76.89 Advance di rective discussed with patient 023462711 Z71.89 Actinic keratosis 430786 007 L57.0 [id number] Stacy Walls [facility] [address] [place] [address] 03/01/2021 07:00:03 03/01/2021 07:32:43 Hyperlipidemia 89043709 E78.5 Subclinica l hypothyroidism 03580446 E02 [id number] Omaira ross MD [facility] [address] [place] [address] 03/08/2021 07:16:37 03/08/2021 08:08:25 Hyperlipidemia 51519366 E78.5 Essential hypertension 77379433 I10 Subclinica l hypothyroidism 84943171 E02 Atheroscle rosis of aorta 89013233 I70.0 Chronic ob structive pulmonary disease 28790366 J44.9 Large prostate 642701018 N40.0 Cervico-oc cipital neuralgia 21524610 M54.81 Senile purpura 63847765 D69.2 Qualitativ e platelet disorder 048120029 D69.[address] vaccination given 0166229009 94154 Z23 Preventive dental procedure 83246481 Z01.20 Erectile dysfunction 860 111658 F52.21 [id number] [facility] [address] [place] [address] 08/23/2021 07:01:03 08/23/2021 09:25:57 Hyperlipidemia 75305946 E78.5 Subclinica l hypothyroidism 09487569 E02 [id number] Brina Fox [facility] [address] [place] [address] 05/10/2021 08:19:49 05/10/2021 08:33:34 Herpes zoster vaccination given 9972690318 96126 Z23 [id number] IRMA ISAACS DO [facility] [address] [place] [address] 08/30/2021 13:41:41 08/30/2021 17:10:56 Hyperlipidemia 09046935 E78.5 Essential hypertension 97798379 I10 Subclinica l hypothyroidism 79923097 E02 Atheroscle rosis of aorta 49720058 I70.0 Chronic ob structive pulmonary disease 23074247 J44.9 Large prostate 926303948 N40.0 Cervico-oc cipital neuralgia 80139357 M54.81 Senile purpura 08290924 D69.2 Erectile dysfunction 860 340574 F52.21 Adult heal th examination 715467265 Z00.00 Medication review done 215111268 Z76.89 Risk assessment done 712 071184 Z76.89 Advance di rective discussed with patient 691818031 Z71.89 Immunization advised 310 767338 Z71.9 [id number] [facility] [address] [place] [address] 02/28/2022 07:11:08 02/28/2022 12:33:54 Hyperlipidemia 02774940 E78.5 Subclinica l hypothyroidism 73388047 E02 [id number] GHANSHYAM GORE MD [facility] [address] [place] [address] 03/07/2022 08:14:42 03/07/2022 14:19:03 Medication review done 558722034 Z76.89 Risk assessment done 712 475797 Z76.89 Advance di rective discussed with patient 725215496 Z71.89 Hearing examination 3981 76430 Z01.10 Mental hea lth screening assessment 597384152 Z13.31 Alcohol co nsumption screening 890175582 Z13.89 Hyperlipidemia 27100945 E78.5 Essential hypertension 37626983 I10 Subclinica l hypothyroidism 95871424 E02 Atheroscle rosis of aorta 42399475 I70.0 Chronic ob structive pulmonary disease 66322595 J44.9 Large prostate 708915726 N40.0 Cervico-oc cipital neuralgia 65113792 M54.81 Senile purpura 93682042 D69.2 Active or passive immunization 045599658 Z23 [id number] [facility] [address] [place] [address] 09/12/2022 07:00:34 09/12/2022 12:12:55 Hyperlipidemia 12693837 E78.5 Essential hypertension 35226876 I10 Subclinica l hypothyroidism 33846291 E02 [id number] CHRISTY KEEN PA-C [facility] [address] [place] [address] 04/12/2022 09:37:50 04/12/2022 10:26:05 Actinic keratosis [id number] L57.0 Atopic dermatitis 197577 01 L20.9 Dry skin 00394525 L85.3 [id number] CHRISTY KEEN PA-C [facility] [address] [place] [address] 04/26/2022 10:39:08 04/26/2022 13:12:32 Atopic dermatitis 16312355 L20.9 Verruca vulgaris 9851628 3 B07.9 [id number] CHRISTY KEEN PA-C [address] [address] 07/13/2022 10:30:20 07/13/2022 15:06:02 Pruritic rash 75823800 L28.[id number] [address] 09/26/2022 07:16:05 09/26/2022 12:05:07 Adult health examination [id number] Z00.00 Medication review done 952412806 Z76.89 Risk assessment done 712 202015 Z76.89 Advance di rective discussed with patient 904942140 Z71.89 Hearing examination 3981 33524 Z01.10 Mental hea h screening assessment 841243333 Z13.31 Alcohol co nsumption screening 113250391 Z13.89 Hyperlipidemia 31223091 E78.5 Essential hypertension 16154066 I10 Subclinica l hypothyroidism 05338317 E02 Atheroscle rosis of aorta 96076190 I70.0 Chronic ob structive pulmonary disease 70860224 J44.9 Large prostate 710754356 N40.0 Cervico-oc cipital neuralgia 01382122 M54.81 Senile purpura 21963968 D69.2 Active or passive immunization 464272349 Z23 Gastroesop hageal reflux disease 220809555 K21.9 Benign pro static hyperplasia 073631916 N40.1 [id number] GHANSHYAM GORE MD [address] [address] 11/09/2022 14:02:16 11/09/2022 15:26:08 Gastroesophageal reflux disease 797356263 K21.9 [id number] JACOBO MARIE ALONDRA [facility] [address] [place] [address] 11/25/2022 13:33:46 11/25/2022 14:24:54 COVID-19 325770119 U07.1 Unintentio nal weight loss 770209902 R63.4 [id number] GHANSHYAM GORE MD [facility] [address] [place] [address] 11/30/2022 16:08:46 11/30/2022 16:52:09 Abdominal pain 94688620 R10.9 [id number] GHANSHYAM GORE MD [facility] [address] [place] [address] 12/07/2022 14:05:32 12/07/2022 15:07:29 Hospital inpatient stay within past 30 days [id number] 106 Z76.89 Health Concerns Section Related Observation LastModified by Organization Detai ls LastModified Time None Recorded Concern Status LastModified by Organization Details LastModified Time None Recorded Advance Directives Directive N: Payers Encounter Date Sequence Insurance Name Policy Number Policy Benson Covered Member ID Benson Member ID Guarantor Name 09/26/2022 1 [employer] - CAPITATION PLAN (MEDICARE REPLACEMENT/A DVANTAGE - HMO) [id number] Jerry Loaiza [id number] Jerry Dumonth 11/09/2022 1 [employer] - CAPITATION PLAN (MEDICARE REPLACEMENT/A DVANTAGE - HMO) [id number] Jerry Loaiza [id number] Jerry Loaiza 11/25/2022 1 [employer] [facility] - CAPITATION PLAN (MEDICARE REPLACEMENT/A DVANTAGE - HMO) [id number] Jerry Loaiza [id number] Jerry Dumonth 11/30/2022 1 [employer] - CAPITATION PLAN (MEDICARE REPLACEMENT/A DVANTAGE - HMO) [id number] Jerry Loaiza [id number] Jerry Dumonth 12/07/2022 1 [employer] [facility] - CAPITATION PLAN (MEDICARE REPLACEMENT/A DVANTAGE - HMO) [id number] Jerry Loaiza [id number] Jerry Loaiza Notes Date Note Type Note Provider Name and Address Organization Details Recorded Time 3 text/html Patient is a {{AGE 77#}} old {{male* female}} here for {{a preventative visit* preventative visit and transition of care}}.pt reports he still have stomach issues with gas, burning sensation. pt reports that if he takes a gas x it helps with the discomfort Labwork reviewed and discussed with patient.PSA: pt does not want PSALast Colonoscopy Screen:10/2013 Normal => no moreVaccines:Hep C:2020 negtobacco: quit 1971alcohol: few beers a weekBruise easily: admitsPHQ screening {{performed today and reviewed* not performed}}.Hearing: {{screen completed, see results* not done}}. Advanced DirectivesOther Issues:Patient Presents today forAny Concerns:with getting adequate exercise? {{No Yes*}}with balance, walking or falls? {{No* Yes}}with bladder control or leakage? {{No Yes*}}Notes (if applicable): GHANSHYAM GORE MD [address] [place], [address], [facility] 09/26/2022 08:27:21 3 text/html Follow Up- want to discuss visit with gastroenterologistwant to discuss visit with supervisor insulation pt reports that he want to discuss having colonoscopy he wants to have just a endoscopy pt reports that the protonix does not help his discomfort. pt is wondering if he can have omeprazole GHANSHYAM GORE MD [address] [place], [address], [facility] 11/14/2022 08:28:34 3 text/html Patient presents to for fatigue and sore throat that started last night. was diagnosed with COVID on Monday and has been coughing quite a bit. He recently had endoscopy for abdominal discomfort and weight loss without any acute findings but his biopsies are pending. JACOBO MARIE APRN [address] [place], [address], [facility] 11/25/2022 14:17:40 3 text/html Follow Up on gastro discomfort. pt reports every place that he has gone has unable to find anything wrong. pt reports that this has been going on for months GHANSHYAM GORE MD [address] [place], [address], [facility] 12/12/2022 10:32:52 3 text/html Patient presents for Hospital follow up [facility]:on 12/01/2022 for complains of intermittent abominal pain. He denied any N/V, no change in his bowel habits b CT Abdomen:Nonspecific mild fluid-air levels in the distal small bowel. Correlate clinically for enteritis. No evidence of bowel obstruction. 2) Mild colonic diverticulosis without acute diverticulitis. Patient was d/c to home w/printed script for Levbid 0.375mg PO q12h PRN abd cramping . GHANSHYAM GORE MD [address] [place], [address], [facility] 12/07/2022 15:41:47
--- OUTSIDE RECORDS SUMMARY | 2024-04-15 15:01 | XMS_ITS | Encounter Summary ---
Author Organization [facility] Address [address] [place] [address] Care Team Providers Care Charge Attendant Name Role Phone Juan Michael MD Primary Care Provider [phone] Reason for Referral * Test (Routine/Next Available) - Authorization Not Required Specialty Diagnoses / Procedures Referred By [facility] t Referred To Contact Diagnoses Chronic obstructive pulmonary disease, unspecified COPD type (HCC-CMS) Procedures PULMONARY FUNCTION TESTING Juan Michael MD [address] [place] [address] Phone: tel: fax: Referral ID Status Reason Start Date Expiration Date Visits Requested Visits Authorized [id number] Authorization Not Required 11/15/2023 1 1 Encounter Details Date Type Department Care Team (Latest Contact Info) Description 11/15/2023 Transcribe Orders [facility] [address] [place] [address] Juan Michael MD [address] [place], [place] [id number] Chronic obstructive pulmonary disease, unspecified COPD type (HCC-CMS) (Primary Dx) Social History Tobacco Use Types Packs/Day Years Used Date Smoking Tobacco: Former Cigarettes Q uit: 1973 Smokeless Tobacco: Former Quit: 04/24/1971 [facility] Utilities Answer Date Recorded In the past 12 months has [employer], gas, oil, or water company threatened to shut off services in your home? No 10/22/2023 Hunger Vital Sign Answer Date Recorded Within the past 12 months, y ou worried that your food would run out before you got the money to buy more. Never true 10/22/19 24 Within the past 12 months, t he food you bought just didn't last and you didn't have money to get more. Never true 10/22/2023 PRAPARE - Transportation Answer Date Re corded In the past 12 months, has l ack of transportation kept you from medical appointments or from getting medications? No 09/24 In the past 12 months, has l ack of transportation kept you from meetings, work, or from getting things needed for daily living? No 10/22/2023 Housing Stability Vital Sign Answer Alejo e Recorded In the last 12 months, was t here a time when you were not able to pay the mortgage or rent on time? No 10/22/2023 In the past 12 months, how m any times have you moved where you were living? 3 10/22/2023 At any time in the past [address] [facility], were you homeless or living in a [place] [facility] [place] facility (including now)? No 10/22/2023 Interpersonal Safety Answer Date Record ed How often does anyone, rea ivonne family, hit, punch or physically hurt you? 10/22/2023 How often does anyone, rea coronado family, insult, scream, curse or threaten to hurt you? 10/22/2023 Sex and Gender Information Value Date Recorded Sex Assigned at Not on file Legal Sex Male 8:25 EDT Gender Identity Male 10/22/2023 8:38 EDT Sexual Orientation Not on file documented as of this encounter Functional Status * Are you deaf or do you have serious difficulty hearing? Answer Date of Assessment Author No 10/22/2023 21:00 EDT Felix Hopson RN * Are you blind or do you have serious difficulty seeing, even when wearing glasses? Answer Date of Assessment Author No 10/22/2023 21:00 EDT Felix Hopson RN * Do you have serious difficulty walking or climbing stairs? (5 years old or older) Answer Date of Assessment Author No 10/22/2023 21:00 EDT Felix Hopson RN * Do you have difficulty dressing or bathing? (5 years old or older) Answer Date of Assessment Author No 10/22/2023 21:00 EDT Felix Hopson RN * Because of a physical, mental, or emotional condition, do you have difficulty doing errands alone such as visiting a doctor's office or shopping? (15 years old or older) Answer Date of Assessment Author No 10/22/2023 21:00 EDT Felix Hopson RN documented as of this encounter Mental Status * Because of a physical, mental, or emotional condition, do you have serious difficulty concentrating, remembering, or making decisions? (5 years old or older) Answer Entry Date Author No 10/22/2023 21:00 EDT Felix Hopson RN documented in this encounter Plan of Treatment Scheduled Orders Name Type Priority Associated Diagnoses Orde r Schedule PULMONARY FUNCTION TESTING PFT Routine Chronic obstructive pulmonary disease, unspecified COPD type ([facility]-CMS) 1 Occurrences starting 11/15/2023 until 05/17/2025 documented as of this encounter Visit Diagnoses Diagnosis Chronic obstructive pulmonary disease, unspecified COPD type ([facility]-CMS)- Primary documented in this encounter Care Teams Charge Attendant Relationship Specialty Start Date End Date Juan Michael MD [address] [facility] [address] [place] [id number] PCP - General Emergency Medicine 10/23/23 documented as of this encounter
--- OUTSIDE RECORDS SUMMARY | 2024-04-15 15:01 | XMS_ITS | Encounter Summary ---
Author Organization [facility] Address [address] [place] [address] Care Team Providers Care Scouring Train Operator Chief Name Role Phone Morena Brown Primary Care Provider [phone] Reason for Visit * Reason Comments Abdominal Pain Encounter Details Date Type Department Care Team ([facility] Contact Info) Description 12/01/2022 8:15 AM EDT - 12/01/2022 12:50 PM EDT Emergency [facility] - ER [address] [place] [address] Marc Browne MD [address] [facility] [address] [place] [address] Left lower quadrant abdominal pain; Irritable bowel syndrome, unspecified type Discharge Disposition: Discharge to Home or Self Care Social History Tobacco Use Types Packs/Day Years Used Date Smoking Tobacco: Never Assessed Tobacco Cessation:Counseling Given: Not Answered Sex and Gender Information Value Date Recorded Sex Assigned at Not on file Gender Identity Not on file Sexual Orientation Not on file documented as of this encounter Last Filed Vital Signs Vital Sign Reading Time Taken Comments Blood Pressure 174/88 12/01/2022 9:15 AM EDT Pulse 83 12/01/2022 9:20 AM EDT Temperature 36.6 ??C (97.9 ??F) 12/01/2022 7:43 AM ED T Respiratory Rate 11 12/01/2022 9:20 AM EDT Oxygen Saturation 99% 12/01/2022 9:20 AM EDT Inhaled Oxygen Concentration - - Weight 58.5 kg (129 lb) 12/01/2022 7:43 AM EDT Height 172.7 cm (5' 8) 12/01/2022 7:43 AM EDT Body Mass Index 19.61 12/01/2022 7:43 AM EDT documented in this encounter Discharge Instructions * Discharge Instructions* Bessy Dawn - 12/01/2022 12:16 PM EDT Your are advised to eat overnight oats, green bananas, and drink Kombucha. * Attachments The following attachments cannot be sent through Care Everywhere. * Irritable Bowel Syndrome Adult (Croatian) documented in this encounter Medications at Time of Discharge Medication Sig Dispensed Refills Start Date End Date hyoscyamine (LEVBID) 0.375 MG Oral Tablet Extended Release 12 Hour Take 1 (one) tablet by mouth every 12 hours as needed for cramping. 20 tablet 12/01/2022 documented as of this encounter ED Notes * Cheli Haider RN - 12/01/2022 12:26 PM EDT Pt being d/c home with no needs. All d/c paperwork given and exp to pt. * Cheli Haider RN - 12/01/2022 8:43 AM EDT Pt came from triage. Pt alert and oriented x4, amb. Pt c/o of abdominal pain. 07/01. Pt states he's had this pain intermittent since august. Will continue to monitor. * Isabella Johnson RN - 12/01/2022 8:02 AM EDT Pt reports abdominal pain x 3 months, pt reports he had an EGD which was normal , pt is seeking a CT Scan Pt reports left lower abdominal pain , non-radiating , denies n/v/d , reports 15lbs weight loss * Marc Browne MD - 12/01/2022 7:43 AM EDT History Chief Complaint Patient presents with ??? Abdominal Pain PCP/Specialist: Morena June This is a 77 y.o. male who presents to the ED c/o intermittent abdominal pain for 3 months. He reports he has pain every day. No change in bowel habits. No nausea or vomiting. Past medical history includes hyperlipidemia. The history is provided by the patient and the spouse. No Known Allergies Past Medical History: Diagnosis Date ??? Hyperlipidemia No past surgical history on file. No family history on file. Social History Socioeconomic History ??? Marital status: Review of Systems Constitutional: Negative for fever and chills. HENT: Negative for ear pain, nasal congestion and sore throat. Eyes: Negative for pain. Respiratory: Negative for cough and shortness of breath. Cardiovascular: Negative for chest pain and palpitations. Gastrointestinal: Positive for abdominal pain. Negative for nausea, vomiting and diarrhea. Genitourinary: Negative for dysuria and hematuria. Musculoskeletal: Negative for back pain and neck pain. Skin: Negative for rash. Neurological: Negative for dizziness, weakness, numbness and headaches. Psychiatric/Behavioral: Negative for anxiety and depression. All other systems reviewed and are negative. Physical Exam ED Triage Vitals [12/01/22 0743] BP (!) 172/91 Pulse (!) 110 Resp 20 Temp 36.6 ??C (97.9 ??F) Temp src Tympanic Height 1.727 m (5' 8) Weight 58.5 kg (129 lb) SpO2 99 % BMI (Calculated) 19.66 BP (!) 174/88 Pulse 83 Temp 36.6 ??C (97.9 ??F) (Tympanic) Resp (!) 11 Ht 1.727 m (5' 8) Wt 58.5 kg (129 lb) SpO2 99% BMI 19.61 kg/m?? Physical Exam Vitals reviewed. Constitutional: General: He is not in acute distress. Appearance: He is not toxic-appearing. HENT: Head: Normocephalic and atraumatic. Mouth/Throat: Mouth: Mucous membranes are moist. Eyes: Conjunctiva/sclera: Conjunctivae normal. Pupils: Pupils are equal, round, and reactive to light. Cardiovascular: Rate and Rhythm: Normal rate and regular rhythm. Pulmonary: Effort: No respiratory distress. Breath sounds: Normal breath sounds. Abdominal: General: Bowel sounds are normal. There is no distension. Palpations: Abdomen is soft. Tenderness: There is no abdominal tenderness. Musculoskeletal: General: No tenderness or deformity. Cervical back: Normal range of motion. Skin: General: Skin is warm. Neurological: General: No focal deficit present. Mental Status: He is alert and oriented to person, place, and time. Psychiatric: Mood and Affect: Mood normal. Behavior: Behavior normal. Differential DDx: IBS, colitis, gastritis 12/01/22 0854 Is this an Emergent Medical Condition? Yes - Severe Pain/Acute Onset of Symptoms 409.901 FS 641.19 FS 627.732 (16) FS ED Workup Procedures LAB AND DIAGNOSTIC RESULTS: Recent Results (from the past 24 hour(s)) Basic Metabolic Panel Collection Time: 12/01/22 8:10 AM Result Value Ref Range Glucose 110 (H) 74 - 106 MG/DL Urea Nitrogen 8 7 - 18 MG/DL Creatinine 0.81 0.70 - 1.30 MG/DL Calcium 9.4 8.5 - 10.1 MG/DL Sodium 132 (L) 136 - 145 MMOL/L Potassium 4.1 3.5 - 5.1 MMOL/L Chloride 97 (L) 98 - 107 MMOL/L CO2 29 21 - 32 MMOL/L BUN/Creatinine Ratio 9.9 7.8 - 25.0 (CALC) Anion Gap 10 5 - 15 MMOL/L EGFR (CKD-EPI) 90 >=60 ML/MIN/1.73M2 Lipase Collection Time: 12/01/22 8:10 AM Result Value Ref Range Lipase 43 13 - 75 U/L Hepatic Function Panel Collection Time: 12/01/22 8:10 AM Result Value Ref Range Albumin 3.7 3.4 - 5.0 G/DL Total Bilirubin 0.5 0.1 - 1.0 MG/DL Bilirubin, Direct 0.1 0.0 - 0.2 MG/DL Bilirubin, Indirect 0.4 0.0 - 0.4 MG/DL Alkaline Phosphatase 77 45 - 117 IU/L AST 28 15 - 37 IU/L ALT 36 16 - 61 IU/L Total Protein 7.9 6.4 - 8.2 G/DL Albumin/Globulin Ratio 0.9 (L) 1.0 - 1.9 (CALC) Calc Total Globuin 4.2 (H) 2.1 - 3.8 G/DL CBC with Differential panel result Collection Time: 12/01/22 8:10 AM Result Value Ref Range WBC 5.3 4.5 - 11.0 x10E3/uL RBC 4.87 4.30 - 5.90 x10E6/uL Hemoglobin 14.7 13.9 - 16.3 G/DL Hematocrit 43.0 39.0 - 55.0 % MCV 88.3 80.0 - 100.0 FL MCH 30.2 23.4 - 34.6 PG MCHC 34.2 31.0 - 37.0 G/DL Platelet Count 250 150 - 400 x10E3/uL MPV 9.9 7.2 - 11.1 FL Neutrophils % 56.8 36.0 - 66.0 % Lymphs % 30.6 24.0 - 44.0 % Monocytes % 11.6 (H) 5.2 - 10.8 % Eos % 0.4 <=7.0 % Basos % 0.4 0.0 - 1.5 % RDW-CV 13.1 11.5 - 14.5 % RDW-SD 42.5 FL nRBC % 0.0 % Absolute NRBC Count 0.00 x10E3/uL Immature Granulocytes % 0.2 % Immature Granulocytes Absolute 0.01 x10E3/uL Lymphocytes Absolute 1.63 1.00 - 3.40 x10E3/uL Monocytes Absolute 0.62 0.20 - 0.80 x10E3/uL Eosinophils Absolute 0.02 <=0.40 x10E3/uL Basophils Absolute 0.02 <=0.10 x10E3/uL Neutrophils Absolute 3.03 1.80 - 6.80 x10E3/uL Urinalysis with reflex to urine culture if positive Collection Time: 12/01/22 9:18 AM Result Value Ref Range Color -Ur Light yellow Specific [place], Urine 1.016 1.001 - 1.030 Protein-UA Negative Negative MG/DL Glucose -Ur Negative Negative MG/DL Ketones UA Negative Negative MG/DL Blood -Ur Negative Negative Nitrite -Ur Negative Negative Urobilinogen -Ur Normal Normal E.U./DL Leukocyte Esterase UA Negative Negative Bacteria -Ur Negative Negative /HPF Turb UA Negative Negative pH, Urine 7.0 RBC -Ur 3.96 (H) <=2.00 HPF WBC -Ur 0.54 <=5.00 HPF Epithelial Cells, UA 0.36 <=5.[address] Abdomen and Pelvis w/o Contrast IMPRESSION: 1. Nonspecific mild fluid-air levels in the distal small bowel. Correlate clinically for enteritis. No evidence of bowel obstruction. 2. Mild colonic diverticulosis without acute diverticulitis. Arnaud Brandon D.O. Dictated by: Arnaud Brandon D.O. on 12/01/2022 at 9:52 Electronically signed on 12/01/2022 at 9:56 EKG Signed and interpreted by the EP. Time Interpreted: 08:08 Rate: 101 Rhythm: Sinus tachycardia Ventricular premature complex. LAFB. Consider RVH. ED Course & Re-Evaluation Discussed medical results and plan for discharge with the patient. Patient understands and agrees with the plan. All questions answered. MDM Decide to obtain history from someone other than the patient: Yes - Family/ Caregiver Decide to obtain previous medical records: No Clinical Lab Test(s): Ordered and Reviewed Results discussed with patient?: Yes Pertinent normals and abnormals discussed with patient. Specific treatments and interventions outlined in the ED record. Diagnostic Tests (Radiology, EKG): Ordered and Reviewed Results discussed with patient?: Yes Pertinent normals and abnormals discussed with patient. Specific treatments and interventions outlined in the ED record. Independent Visualization (ED US, Wet Prep, Other): No Used Risk Assessment Tool: No Discussed patient with NON-ED Provider: None Medication Treatment Plan & Referrals Medications given this encounter: Medications - No data to display OTC Medications considered: Multi-Modal Prescription Medications considered? Yes . New Prescriptions HYOSCYAMINE (LEVBID) 0.375 MG ORAL TABLET EXTENDED RELEASE 12 HOUR Take 1 (one) tablet by mouth every 12 hours as needed for cramping. Referrals: Follow up with PCP SDOH Diagnosis/treatment significantly limited by social determinants of health? No ED Disposition ED Disposition: Discharge ED Clinical Impression ED Clinical Impression: Left lower quadrant abdominal pain Irritable bowel syndrome, unspecified type ED Patient Status Patient Status: The patient condition on admission/discharge/transfer is: Stable ED Medical Evaluation Initiated Medical Evaluation Initiated: Yes, filed at 12/01/22 0854 by Bessy Dawn Attestations: Bessy Katz, acting as scribe for and in the presence of Dr. Marc Browne. I attest that I chaperoned Dr. Marc Browne during all patient interactions that took place during this encounter. I, Dr. Marc Browne MD, have reviewed and confirmed the information stated by the scribe and made corrections and edits as appropriate. I have personally provided the services documented by thescribe. Marc Browne MD 12/03/22 1301 documented in this encounter Plan of Treatment Not on file documented as of this encounter Procedures Procedure Name Priority Date/Time Associated Diagnosis Comments CARDIOLOGY TESTING 12/02/2022 2: [address] ABDOMEN AND PELVIS W/O CONTRAST STAT 12/01/2022 9:41 AM EDT URINALYSIS/C&S IF POS STAT 12/01/2022 9:18 AM EDT CBC AUTODIFF STAT 12/01/2022 8:10 AM EDT CBC AND DIFFERENTIAL STAT 12/01/2022 8:10 AM EDT LIPASE STAT 12/01/2022 8:10 AM EDT HEPATIC FUNCTION PANEL STAT 12/01/2022 8:10 AM EDT BASIC METABOLIC PANEL STAT 12/01/2022 8:10 AM EDT HB EKG TRACING ONLY STAT 12/01/2022 8 :08 AM EDT Abdominal pain documented in this encounter Results * CARDIOLOGY TESTING (12/02/2022 2:28 PM EDT) Narrative 12/02/2022 2:28 PM EDT Ordered by an unspecified provider. Document Onb Scanned SCANNED ORDERS * CT Abdomen and Pelvis w/o Contrast (12/01/2022 9:41 AM EDT) Anatomical Region Laterality Modality Computed Tomogra phy 12/01/2022 9:56 AM EDT Narrative 12/01/2022 9:56 AM EDT PATIENT: ?SANDEE BURGESS DATE: ?12/01/2022 at 9:29 PROCEDURE: ?CT ABDOMEN AND PELVIS W/O CONTRAST COMPARISON: ?None. INDICATIONS: generalized abdominal pain RADIATION: Total Dose Length Product (DLP): 350.3 mGy*cm CT imaging studies in past 12 months: 0 TECHNIQUE: ? Axial images were made from the diaphragm through the symphysis pubis without oral contrast. ??Evaluation of solid organs and vascular structures is suboptimal due to the lack of IV contrast. ?? Dose reduction technique(s) were used. DICOM format image data is available to non-affiliated external healthcare facilities or entities on a secure, media-free, reciprocally searchable basis with patient authorization for at least a 12-month period after the study. FINDINGS: ??Evaluation of the pelvis is limited secondary to beam hardening/streak artifacts from left total hip arthroplasty hardware. Cardiopulmonary: ??No acute findings. Hepatopancreaticobiliary: ??Unremarkable. ?? Spleen and adrenals: ??Unremarkable. ?? Genitourinary: ??Obstructive uropathy or urolithiasis.. ??Urinary bladder and prostate gland are partially obscured by hardware artifacts. ?? Prostate gland appears mildly enlarged in size. Gastrointestinal: ??Nonspecific mild fluid-air levels in the distal small bowel. ??No evidence of bowel obstruction. ??Mild colonic diverticulosis without acute diverticulitis. ??Appendix is not readily identified; ??no pericecal inflammatory changes. Mesentery, peritoneum, retroperitoneum: ??Unremarkable. ??No free fluid. ?? No free air. ?? Lymph nodes: ??No lymphadenopathy. Vascular: ??Aortoiliac atherosclerotic calcifications without aneurysm. Musculoskeletal: ??No acute findings. ??Total hip arthroplasty hardware in place. ??Degenerative changes of the spine and hip joints. Other: ??None. IMPRESSION: ? 1. Nonspecific mild fluid-air levels in the distal small bowel. ?? Correlate clinically for enteritis. ??No evidence of bowel obstruction. ?? 2. Mild colonic diverticulosis without acute diverticulitis. Arnaud Brandon D.O. ?? Dictated by: Arnaud Brandon D.O. on 12/01/2022 at 9:52 ? Electronically signed ??on 12/01/2022 at 9:56 ? Procedure Note Arnaud Brandon DO - 12/01/2022 PATIENT: SANDEE BURGESS DATE: 12/01/2022 at 9:29 PROCEDURE: CT ABDOMEN AND PELVIS W/O CONTRAST COMPARISON: None. INDICATIONS: generalized abdominal pain RADIATION: Total Dose Length Product (DLP): 350.3 mGy*cm CT imaging studies in past 12 months: 0 TECHNIQUE: Axial images were made from the diaphragm through the symphysis pubis without oral contrast. Evaluation of solid organs and vascular structures is suboptimal due to the lack of IV contrast. Dose reduction technique(s) were used. DICOM format image data is available to non-affiliated external healthcare facilities or entities on a secure, media-free, reciprocally searchable basis with patient authorization for at least a 12-month period after the study. FINDINGS: Evaluation of the pelvis is limited secondary to beam hardening/streak artifacts from left total hip arthroplasty hardware. Cardiopulmonary: No acute findings. Hepatopancreaticobiliary: Unremarkable. Spleen and adrenals: Unremarkable. Genitourinary: Obstructive uropathy or urolithiasis.. Urinary bladder and prostate gland are partially obscured by hardware artifacts. Prostate gland appears mildly enlarged in size. Gastrointestinal: Nonspecific mild fluid-air levels in the distal small bowel. No evidence of bowel obstruction. Mild colonic diverticulosis without acute diverticulitis. Appendix is not readily identified; no pericecal inflammatory changes. Mesentery, peritoneum, retroperitoneum: Unremarkable. No free fluid. No free air. Lymph nodes: No lymphadenopathy. Vascular: Aortoiliac atherosclerotic calcifications without aneurysm. Musculoskeletal: No acute findings. Total hip arthroplasty hardware in place. Degenerative changes of the spine and hip joints. Other: None. IMPRESSION: 1. Nonspecific mild fluid-air levels in the distal small bowel. Correlate clinically for enteritis. No evidence of bowel obstruction. 2. Mild colonic diverticulosis without acute diverticulitis. Arnaud Brandon D.O. Dictated by: Arnaud Brandon D.O. on 12/01/2022 at 9:52 Electronically signed on 12/01/2022 at 9:56 Marc Browne MD RAD CT ORDERABLE S * (ABNORMAL) Urinalysis with reflex to urine culture if positive (12/01/2022 9:18 AM EDT) Color -Ur Light yellow 12/01/2022 9:44 AM EDT [facility] Specific [place], Urine 1.016 1.001 - 1.030 12/01/2022 9:44 AM EDT [facility] Protein-UA Negative Negative MG/DL 12/01/2022 9:44 AM EDT [facility] Glucose -Ur Negative Negative MG/DL 12/01/2022 9:44 AM EDT [facility] Ketones UA Negative Negative MG/DL 12/01/2022 9:44 AM EDT [facility] Blood -Ur Negative Negative 12/01/2022 9:44 AM EDT [facility] Nitrite -Ur Negative Negative 12/01/2022 9:44 AM EDT [facility] Urobilinogen -Ur Normal Normal E.U./DL 12/01/2022 9:44 AM EDT [facility] Leukocyte Esterase UA Negative Negative 12/01/2022 9:44 AM EDT [facility] Bacteria -Ur Negative Negative /HPF 12/01/2022 9:44 AM EDT [facility] Turb UA Negative Negative 12/01/2022 9:44 AM EDT [facility] pH, Urine 7.0 12/01/2022 9:44 AM EDT [facility] RBC -Ur 3.96(H) <=2.00 HPF 12/01/2022 9:44 AM EDT [facility] WBC -Ur 0.54 <=5.00 HPF 12/01/2022 9:44 AM EDT [facility] Epithelial Cells, UA 0.36 <=5.00 HPF 12/01/2022 9:44 AM EDT [facility] Urine URINE SPECIMEN OBTAINED BY CLEAN CATCH PROCEDURE / Unknown Collection / Unknown 12/01/2022 9:18 AM EDT 12/01/2022 9:28 AM EDT Marc Browne MD URINE ORDERABLES [facility], [facility] [place] [address], [facility] [phone] * (ABNORMAL) CBC with Differential panel result (12/01/2022 8:10 AM EDT) WBC 5.3 4.5 - 11.0 x10E3/uL 12/01/2022 8:50 AM EDT [facility] RBC 4.87 4.30 - 5.90 x10E6/uL 12/01/2022 8:50 AM EDT [facility] Hemoglobin 14.7 13.9 - 16.3 G/DL 12/01/2022 8:50 AM EDT [facility] Hematocrit 43.0 39.0 - 55.0 % 12/01/2022 8:50 AM EDT [facility] MCV 88.3 80.0 - 100.0 FL 12/01/2022 8:50 AM EDT [facility] MCH 30.2 23.4 - 34.6 PG 12/01/2022 8:50 AM EDT [facility] MCHC 34.2 31.0 - 37.0 G/DL 12/01/2022 8:50 AM EDT [facility] Platelet Count 250 150 - 400 x10E3/uL 12/01/2022 8:50 AM EDT [facility] MPV 9.9 7.2 - 11.1 FL 12/01/2022 8:50 AM EDT [facility] Neutrophils % 56.8 36.0 - 66.0 % 12/01/2022 8:50 AM EDT [facility] Lymphs % 30.6 24.0 - 44.0 % 12/01/2022 8:50 AM EDT [facility] Monocytes % 11.6(H) 5.2 - 10.8 % 12/01/2022 8:50 AM EDT [facility] Eos % 0.4 <=7.0 % 12/01/2022 8:50 AM EDT [facility] Basos % 0.4 0.0 - 1.5 % 12/01/2022 8:50 AM EDT [facility] RDW-CV 13.1 11.5 - 14.5 % 12/01/2022 8:50 AM EDT [facility] RDW-SD 42.5 FL 12/01/2022 8:50 AM EDT [facility] nRBC % 0.0 % 12/01/2022 8:50 AM EDT [facility] Absolute NRBC Count 0.00 x10E3/uL 12/01/2022 8:50 AM EDT [facility] Immature Granulocytes % 0.2 % 12/01/2022 8:50 AM EDT [facility] Immature Granulocytes Absolute 0.01 x10E3/uL 12/01/2022 8:50 AM EDT [facility] Lymphocytes Absolute 1.63 1.00 - 3.40 x10E3/uL 12/01/2022 8:50 AM EDT [facility] Monocytes Absolute 0.62 0.20 - 0.80 x10E3/uL 12/01/2022 8:50 AM EDT [facility] Eosinophils Absolute 0.02 <=0.40 x10E3/uL 12/01/2022 8:50 AM EDT [facility] Basophils Absolute 0.02 <=0.10 x10E3/uL 12/01/2022 8:50 AM EDT [facility] Neutrophils Absolute 3.03 1.80 - 6.80 x10E3/uL 12/01/2022 8:50 AM EDT [facility] Blood Venipuncture / Unknown 12/01/2022 8:10 AM EDT 12/01/2022 8:16 AM EDT Marc Browne MD BLOOD ORDERABLES [facility], [address] [place] [id number] [phone] * (ABNORMAL) Hepatic Function Panel (12/01/2022 8:10 AM EDT) Albumin 3.7 3.4 - 5.0 G/DL 12/01/2022 9:21 AM EDT [facility] Total Bilirubin 0.5 0.1 - 1.0 MG/DL 12/01/2022 9:21 AM EDT [facility] Bilirubin, Direct 0.1 0.0 - 0.2 MG/DL 12/01/2022 9:21 AM EDT [facility] Bilirubin, Indirect 0.4 0.0 - 0.4 MG/DL 12/01/2022 9:21 AM EDT [facility] Alkaline Phosphatase 77 45 - 117 IU/L 12/01/2022 9:21 AM EDT [facility] AST 28 15 - 37 IU/L 12/01/2022 9:21 AM EDT [facility] ALT 36 16 - 61 IU/L 12/01/2022 9:21 AM EDT [facility] Total Protein 7.9 6.4 - 8.2 G/DL 12/01/2022 9:21 AM EDT [facility] Albumin/Globulin Ratio 0.9(L) 1.0 - 1.9 (CALC) 12/01/2022 9:21 AM EDT [facility] Calc Total Globuin 4.2(H) 2.1 - 3.8 G/DL 12/01/2022 9:21 AM EDT [facility] Blood Venipuncture / Unknown 12/01/2022 8:10 AM EDT 12/01/2022 8:16 AM EDT Marc Browne MD BLOOD ORDERABLES Performing Organization Address City/[facility] Co de Phone Number [address] [phone] * Lipase (12/01/2022 8:10 AM EDT) Lipase 43 13 - 75 U/L 12/01/2022 9: 11 AM EDT [facility] Blood Venipuncture / Unknown 12/01/2022 8:10 AM EDT 12/01/2022 8:16 AM EDT Marc Browne MD BLOOD ORDERABLES Performing Organization Address [facility] Phone Number [address] [phone] * (ABNORMAL) Basic Metabolic Panel (12/01/2022 8:10 AM EDT) Glucose 110(H) 74 - 106 MG/DL 12/01/2022 9:21 AM EDT [facility] Urea Nitrogen 8 7 - 18 MG/DL 12/01/2022 9:21 AM EDT [facility] Creatinine 0.81 0.70 - 1.30 MG/DL 12/01/2022 9:21 AM EDT [facility] Calcium 9.4 8.5 - 10.1 MG/DL 12/01/2022 9:21 AM EDT [facility] Sodium 132(L) 136 - 145 MMOL/L 12/01/2022 9:21 AM EDT [facility] Potassium 4.1 3.5 - 5.1 MMOL/L 12/01/2022 9:21 AM EDT [facility] Chloride 97(L) 98 - 107 MMOL/L 12/01/2022 9:21 AM EDT [facility] CO2 29 21 - 32 MMOL/L 12/01/2022 9:21 AM EDT [facility] BUN/Creatinine Ratio 9.9 7.8 - 25.0 (CALC) 12/01/2022 9:21 AM EDT [facility] Anion Gap 10 5 - 15 MMOL/L 12/01/2022 9:21 AM EDT [facility] EGFR (CKD-EPI) 90 >=60 ML/MIN/1.7 3M2 12/01/2022 9:21 AM EDT [facility] Blood Venipuncture / Unknown 12/01/2022 8:10 AM EDT 12/01/2022 8:16 AM EDT Marc Browne MD BLOOD ORDERABLES [facility], [address] [place] [address] * EKG - ED (12/01/2022 8:08 AM EDT) 12/01/2022 8:08 AM EDT Marc Browne MD ECG ORDERABLES [facility] EKG documented in this encounter Visit Diagnoses Diagnosis Left lower quadrant abdominal pain Irritable bowel syndrome, unspecified type documented in this encounter Care Teams Scouring Train Operator Chief Relationship Specialty Start Date End Date Morena Brown [facility] [address] [place] [id number] PCP - General Internal Medicine 12/01/22 documented as of this encounter
--- OUTSIDE RECORDS SUMMARY | 2024-04-15 15:01 | XMS_ITS | Encounter Summary ---
Author Organization [facility] Address [address] [place] [address] Care Team Providers Care Biology Laboratory Assistant Name Role Phone Morena Brown Primary Care Provider [phone] Encounter Details Date Type Department Care Team (Latest Contact Info) Description 12/01/2022 Travel Social History Tobacco Use Types Packs/Day Years Used Date Smoking Tobacco: Never Assessed Sex and Gender Information Value Date Recorded Sex Assigned at Not on file Gender Identity Not on file Sexual Orientation Not on file documented as of this encounter Plan of Treatment Not on file documented as of this encounter Visit Diagnoses Not on filedocumented in this encounter Care Teams Biology Laboratory Assistant Relationship Specialty Start Date End Date KevinMorena leslie [address] [place] [id number] PCP - General Internal Medicine 12/01/22 documented as of this encounter
--- OUTSIDE RECORDS SUMMARY | 2024-04-15 15:01 | XMS_ITS | Clinical Summary ---
Author Organization [facility] Address [address] [id number] Care Team Providers Care Neonatal Surgeon Name Role Phone Morena Brown Primary Care Provider Allergies No known active allergies Medications Medication Sig Dispensed Refills Start Date End Date Status hyoscyamine (LEVBID) 0.375 MG Oral Tablet Extended Release 12 Hour Take 1 (one) tablet by mouth every 12 hours as needed for cramping. 20 tablet 12/01/2022 Active Social History Tobacco Use Types Packs/Day Years Used Date Smoking Tobacco: Never Assessed Tobacco Cessation:Counseling Given: Not Answered Sex and Gender Information Value Date Recorded Sex Assigned at Not on file Gender Identity Not on file Sexual Orientation Not on file Last Filed Vital Signs Vital Sign Reading [...] Mass Index 19.61 12/01/2022 7:43 AM EDT Plan of Treatment Health Maintenance Due Date Last Done Comments DTaP,Tdap,and Td Vaccines (1 - Tdap) 1962 Lipid Profile 1978 Pneumococcal Vaccine (50+ yrs) (1 of 1 - PCV) 1993 Zoster Vaccine (1 of 2) 1993 RSV Vaccine (1 - 1-dose 75+ series) 2018 Medicare Initial AWV [id number] 04/24/2023 Influenza Vaccine (#1) 2023 2, 12/28/2020, 12/16/2019, Additional history exists SARS-CoV-2 (COVID-19) ( season) 2023 09/26/2022, 02/08/2022, 01/26/2022, Additional history exists HIB Vaccine Aged Out No longer eligi ble based on patient's age to complete this topic HPV Vaccine Aged Out No longer eligi ble based on patient's age to complete this topic Hepatitis A Vaccine Aged Out No longe r eligible based on patient's age to complete this topic Hepatitis B Vaccine Aged Out No longe r eligible based on patient's age to complete this topic Meningococcal ACWY Aged Out No longer eligible based on patient's age to complete this topic Polio Vaccine Aged Out No longer elig ible based on patient's age to complete this topic Rotavirus Vaccine Aged Out No longer eligible based on patient's age to complete this topic Care Teams Neonatal Surgeon Relationship Specialty Start Date End Date Kevin Morena [address] [address] PCP - General Internal Medicine 12/01/22
--- OUTSIDE RECORDS SUMMARY | 2024-04-15 15:01 | XMS_ITS | Clinical Summary ---
Author Organization [facility] Address [address] [place] [address] Care Team Providers Care Knitter Wire Mesh Name Role Phone Juan Michael MD Primary Care Provider [phone] Allergies No known active allergies Medications amoxicillin (AMOXIL) 500 mg capsule TAKE FOUR CAPSULES BY MOUTH ONE HOUR BEFORE APPOINTMENT Active simvastatin (ZOCOR) 10 mg tablet Take 1 Tablet by mouth daily. Active Active Problems Problem Noted Date Diagnosed Date Acute respiratory failure with hypoxia ([facility]) [J96.01] 10/22/2023 Wheezing 10/22/2023 Hypoxemia 10/22/2023 Gastroesophageal reflux disease 09/26/2022 Benign prostatic hyperplasia 09/26/2022 Essential hypertension 02/20/2020 Chronic obstructive pulmonary disease ([facility]) 02/10/2020 Overview (10/22/2023): [facility]: J44.9 Subclinical hypothyroidism 07/03/2019 Atherosclerosis of aorta ([facility]) 07/23/2015 Overview (10/22/2023): [facility] Hyperlipidemia 03/27/2015 Social History Tobacco Use Types Packs/Day Years Used Date Smoking Tobacco: Former Cigarettes Q uit: 1973 Smokeless Tobacco: Former Quit: 04/24/1971 Tobacco Cessation:Counseling Given: No [facility] Utilities Answer Date Recorded In the past 12 months has e electric, gas, oil, or water company threatened [...] any time in the past 12 m [facility], were you homeless or living in a [facility] (including now)? No 10/22/2023 Interpersonal Safety Answer Date Record ed How often does anyone, [employer] family, hit, punch or physically hurt you? 10/22/2023 How often does anyone, [employer] family, insult, scream, curse or threaten to hurt you? 10/22/2023 Sex and Gender Information Value Date Recorded Sex Assigned at Not on file Legal Sex Male 8:25 EDT Gender Identity Male 10/22/2023 8:38 EDT Sexual Orientation Not on file Obstetrics History Last Filed Vital Signs Vital Sign Reading Time Taken Comments Blood Pressure 124/66 10/23/2023 0830 EDT Pulse 95 10/22/2023 0900 EDT Temperature 36.8 ??C (98.2 ??F) 10/23/2023 0830 EDT Respiratory Rate 19 10/23/2023 0832 EDT Oxygen Saturation 98% 10/23/2023 0832 EDT Inhaled Oxygen Concentration - - Weight 61.3 kg (135 lb 3.2 oz) 10/23/2023 0512 E DT Height 172.7 cm (5' 8) 10/22/2023 0941 EDT Body Mass Index 20.56 10/22/2023 0941 EDT Plan of Treatment Health Maintenance Due Date Last Done Comments Copd Action Plan 1943 Lung Function Test (Spirometry) 1943 Fall Risk Screening 01/09/2008 RSV Immunization ( o r 60+ Years) (1 - 1-dose 75+ series) 2018 COVID-19 Vaccine ( season) 2023 09/26/2022, 06/22/2020, 06/01/2020 Insurance [facility] Advance Directives For more information, please contact: [phone] * Limitation of Treatment (Latest Code Status on File) Date Activated Date Inactivated Comments 10/22/2023 18:06 10/23/2023 14:40 Question Answer Comments When the patient has NO PULSE: DNR When the patient HAS A PULSE and is in respiratory distress/failure: Trial Period Trial period of (choose one or both): intubation non - invasive ventilation Who Made the Decision? Patient Care Teams Knitter Wire Mesh Relationship Specialty Start Date End Date Juan Michael MD [address] [facility] [address] [place] [address] PCP - General Emergency Medicine 10/23/23
--- OUTSIDE RECORDS SUMMARY | 2024-04-15 15:01 | XMS_ITS | Referral Summary ---
Author Organization [facility] Address [address] [id number] Care Team Providers Care Lease Purchase Truck Driver Name Role Phone Morena Brown Primary Care Provider [phone] Allergies No known active allergies Medications Medication [...] 12/01/2022 7:43 AM EDT Plan of Treatment Not on file Care Teams Lease Purchase Truck Driver Relationship Specialty Start Date End Date Morena Brown [address] [facility] [address] [place] [address] PCP - General Internal Medicine 12/01/22
--- OUTSIDE RECORDS SUMMARY | 2024-04-15 15:01 | XMS_ITS | Encounter Summary ---
Author Organization 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 Name Role Phone Unknown, Provider Primary Care Provider Juan Palmer MD Primary Care Provider [phone] Reason for Referral * Test (Routine/Next Available) - Authorization Not Required Specialty Diagnoses / Procedures Referred By Jeffery t Referred To Contact Diagnoses Wheezing Chronic obstructive pulmonary disease with acute exacerbation (HCC-CMS) Procedures PULMONARY FUNCTION TESTING Ryanne Arana MD [address] [place] [phone] Phone: tel: fax: Referral ID Status Reason Start Date Expiration Date Visits Requested Visits Authorized [id number] Authorization Not Required 10/23/2023 1 1 Reason for Visit * Reason Comments Shortness of Breath 5 days of increasing sob with exertion. Speaking partial sentences. Upper resp congestion. Occasional phlegm. * Auth/Cert (Routine) Specialty Diagnoses / Procedures [facility] Referred To Contact Diagnoses Wheezing Hypoxemia Acute respiratory failure with hypoxia (HCC-CMS) Acute respiratory failure with hypoxia (HCC-CMS) [J96.01] Referral ID Status Reason Start Date Expiration Date Visits Re quested Visits Authorized [id number] 1 1 Encounter Details Date Type Department Care Team (Late st Contact Info) Description 10/22/2023 8:38 EDT - 10/23/2023 12:40 EDT Hospital Encounter [facility] Medical / Surgical Department [address] [place] [address] [phone] Phong Obrien MD [address] [place] [phone] Irma Palacios MD [address] [place] [phone] Ryanne Arana MD [address] [place] [address] Wheezing (Primary Dx); Hypoxemia; Acute respiratory failure with hypoxia ([facility]CMS) [J96.01]; Chronic obstructive pulmonary disease with acute exacerbation ([facility]-CMS) Discharge Disposition: Home or Self Care Social History Tobacco Use Types Packs/Day Years Used Date Smoking Tobacco: Former Cigarettes Q uit: 1973 Smokeless Tobacco: Former Quit: 04/24/1971 Tobacco Cessation:Counseling Given: No [facility] Utilities Answer Date Recorded In the past 12 months has th e [email or web address], oil, or water [employer] threatened to shut off services in your [...] time in the past 12 m [facility], were you homeless or living in a fci (including now)? No 10/22/2023 Interpersonal Safety Answer [...] Body Mass Index 20.56 10/22/2023 0941 EDT documented in this encounter Functional Status * Are you deaf or do you have serious difficulty hearing? Answer Date of Assessment Author No 10/22/2023 21:00 EDT Felix Adams RN * Are you blind or do you have serious difficulty seeing, even when wearing glasses? Answer Date of Assessment Author No 10/22/2023 21:00 EDT Felix Adams RN * Do you have serious difficulty walking or climbing stairs? (5 years old or older) Answer Date of Assessment Author No 10/22/2023 21:00 EDT Felix Adams RN * Do you have difficulty dressing or bathing? (5 years old or older) Answer Date of Assessment Author No 10/22/2023 21:00 EDT Felix Adams RN * Because of a physical, mental, or emotional condition, do you have difficulty doing errands alone such as visiting a doctor's office or shopping? (15 years old or older) Answer Date of Assessment Author No 10/22/2023 21:00 EDT Felix Adams RN documented as of this encounter Mental Status * Because of a physical, mental, or emotional condition, do you have serious difficulty concentrating, remembering, or making decisions? (5 years old or older) Answer Entry Date Author No 10/22/2023 21:00 EDT Felix Adams RN documented in this encounter Discharge Summaries * Ryanne Arana MD - 10/23/2023 1216 EDT Images from the original note were not included. HOSPITAL MEDICINE DISCHARGE SUMMARY Primary Care Provider: UNKNOWN,PROVIDER Attending Physician: Ryanne Arana* Admit Date: 10/22/23 Discharge Date: 10/23/23 Disposition Location: Home Reason for Admission (chief complaint): Shortness of breath and productive cough Principal/Final Diagnosis: Wheezing Additional Problems Managed in the Hospital: Active Hospital Problems Diagnosis Date Noted *Wheezing 10/22/2023 Acute respiratory failure with hypoxia ([facility]) [J96.01] 10/22/2023 Hypoxemia 10/22/2023 Resolved Hospital Problems No resolved problems to display. Clinical Issues Needing Follow-up COPD exacerbation Guaifenesin 1200 mg twice daily Azithromycin 500 mg to complete a 3-day course on 10/23 Prednisone 40 mg daily to complete a 5-day steroid course on 10/25 Outpatient PFTs ordered Case management to arrange for PCP follow-up Sinus tachycardia Suspect secondary to steroids and nebulizer medications Hospital Course: Sandee Loaiza is a 78 y.o. male with hyperlipidemia and COPD not on oxygen who presented with a week of productive cough and progressive shortness of breath. He was found to have acuterespiratory failure with hypoxia and met severe sepsis criteria based on tachypnea, tachycardia andelevated lactic acid (3.4). He was treated with IV fluids, DuoNebs, guaifenesin, azithromycin, cefepime, vancomycin and steroids. His lactic acid normalized after IV fluids. His symptoms resolved entirely by the next day although he remained tachycardic. His procalcitonin returned undetectable making bacterial pneumonia unlikely. Given the rapidity of his improvement it was felt that he most likely had a COPD exacerbation. He was discharged home with the above plan. Microbiology: 10/21 COVID-19, influenza A/B and RSV negative 10/21 blood cultures x 2 sent 10/21 expanded respiratory viral panel PCR sent 10/21 respiratory bacterial smear with many neutrophils, rare squamous epithelial cells, no respiratory epithelial cells, few mixed gram-positive and gram- negative organisms and mucus 10/21 respiratory bacterial culture pending 10/22 MRSA PCR pending Relevant Imaging/Procedures Performed: CT ANGIO CHEST PE PROTOCOL 10/22/[address] angiogram of the chest. No evidence of acute pulmonary embolism. 2. COPD with hyperinflated lung quintanilla. XR CHEST 2 VIEWS 10/22/2023 Hyperinflated lungs no acute process Results Pending at Discharge: Test results still pending from this admission Procedure Component Value Units Date/Time MRSA PCR [[id number]] Collected: 10/23/23 1024 Lab Status: In process Specimen: Swab from Nares Updated: 10/23/23 1037 Bacterial Culture/Smear, Respiratory [[id number]] (Abnormal) Collected: 10/22/232037 Lab Status: Preliminary result Specimen: Swab from Sputum, Expectorated Updated: 10/22/232125 Smear Many Neutrophils Present Rare Squamous Epithelial Cells Respiratory epithelial cells absent Few Mixed gram positive and gram negative organisms Mucus present Expanded Respiratory Viral Panel, PCR (Does not include influenza or RSV) [[id number]] Collected: 10/22/23 1655 Lab Status: In process Specimen: Swab from Nasopharynx Updated: 10/22/23 1831 Bacterial Culture, Blood [[id number]] Collected: 10/22/23 1820 Lab Status: In process Specimen: Blood, Venous Updated: 10/22/23 1824 Bacterial Culture, Blood [[id number]] Collected: 10/22/23 1756 Lab Status: In process Specimen: Blood, Venous Updated: 10/22/23 1803 I personally spent >30 minutes reviewing the chart, evaluating and examining the patient, and counseling and preparing the patient for discharge Ryanne Arana MD Hosptialist documented in this encounter Medications at Time of Discharge amoxicillin (AMOXIL) 500 mg capsule TAKE FOUR CAPSULES BY MOUTH ONE HOUR BEFORE APPOINTMENT simvastatin (ZOCOR) 10 mg tablet Take 1 Tablet by mouth daily. azithromycin (ZITHROMAX) 500 mg tablet Take 1 Tablet by mouth daily for 1 day. 1 Tablet 10/24/2023 4 guaiFENesin (MUCINEX) 600 mg SR tablet Take 2 Tablets by mouth 2 times daily for 5 days. 20 Tablet 10/23/2023 4 predniSONE (DELTASONE) 20 mg tablet Take 2 Tablets by mouth daily for 3 days. 6 Tablet 10/24/2023 4 documented as of this encounter Ordered Prescriptions Prescription Sig Dispense Quantity Refills Last Filled Start Date End Date predniSONE (DELTASONE) 20 mg tablet Take 2 Tablets by mouth daily for 3 days. 6 Tablet 10/24/2023 4 guaiFENesin (MUCINEX) 600 mg SR tablet Take 2 Tablets by mouth 2 times daily for 5 days. 20 Tablet 10/23/2023 4 azithromycin (ZITHROMAX) 500 mg tablet Take 1 Tablet by mouth daily for 1 day. 1 Tablet 10/24/2023 4 documented in this encounter Discharge Disposition Disposition Code Departure Means Destination Comment s Home or Self Care documented in this encounter Progress Notes * Mary Norris - 10/23/2023 1240 EDT DC Destination and with who: Home with his , without services. Client and/or Family Aware and in Agreement with the dc plan: Yes, Patient. IM Issued: N/A. Community Service Referrals and Agency: None needed. Was the Agency/Person Notified, Who, Contact Info?: N/A. Any New Equipment/What Type and from where?: None Needed. Mode of Transportation and Agency: Family. Patient discharged prior to CM being able to complete the intake screen with him. CM called patient to follow-up with him about his discharge home and need for PCP follow-up. Patient's medical record updated to include his PCP: Dr. Juan Michael at [facility], [place], [place].CM offered to call and arrange follow- up for patient, he agreed. First opening for follow-up appointment for patient at [facility] was for 11/13/23 @ 3pm; patient notified via voicemail of this appointment. 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 Pulse: <100 Resp Rate: 18-25 SOB: None Total Score: 3 Comment:: qid Frequency Based On Total Score: 0-4 = PRN 5-7 = QID 8-10 = Q4H 11-12 = Q2H Airway Clearance Therapy Frequency Airway Clearance - Clinical Indications: Productive cough Breath Sounds: Clear / diminished Sputum: Small (tsp) / None Consistency: Thin / thick Cough Effort: Strong/ productive Color: None Total Score: 2 Comment: prn Frequency Based On Total Score: 0-3 = PRN 4-6 = QID and PRN 7-9 = Q4H and PRN 10-11 = Q2H and PRN Hyperinflation Therapy Frequency Hyperinflation - Clinical Indications: Decreased breath sounds with increased FiO2 Breath Sounds: Diminished / crackles Surgery: No X-Ray / Atelectasis: No O2 Requirements: O2 at baseline Mobility Status: Mobile / at baseline Total: 2 Comment: prn Frequency Based On Total Score: 0-3 = PRN 4-6 = QID and PRN 7-9 = Q4H and PRN 10-12 = Q2H and PRN Action/Events Respiratory events; CARITO FRANKEL, RT 10/23/23 * Day, Rj, RT - 10/22/2023 2114 EDT Respiratory Consult/Progress Note Indications for Respiratory therapy: COPD Data Vitals: Heart Rate: (!) 110 BPM, Resp: 18, SpO2: 97 % FIO2/O2 Device: O2 Flow Rate (L/min): 2 l/min, , O2 Device: Nasal cannula, RT Orders: Duoneb QID Albuterol NEB PRN Protocol Scoring: Bronchodilator/Inhalation Therapy Frequency Bronchodilator - Clinical Indications: LIP order Breath Sounds: Any abnormal BS decreased Response: Mild response, 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 Pulse: >100 Resp Rate: 18-25 SOB: With exertion Total Score: 5 Comment:: qid Frequency Based On Total Score: 0-4 = PRN 5-7 = QID 8-10 = Q4H 11-12 = Q2H Airway Clearance Therapy Frequency Airway Clearance - Clinical Indications: Productive cough Breath Sounds: Clear / diminished Sputum: Small (tsp) / None Consistency: None Cough Effort: Strong/ non-productive Color: None Total Score: 0 Comment: prn Frequency Based On Total Score: 0-3 = PRN 4-6 = QID and PRN 7-9 = Q4H and PRN 10-11 = Q2H and PRN Hyperinflation Therapy Frequency Hyperinflation - Clinical Indications: Decreased breath sounds with increased FiO2 Breath Sounds: Diminished / crackles Surgery: No X-Ray / Atelectasis: No O2 Requirements: 0-2 L above baseline Mobility Status: Mobile / at baseline Total: 3 Comment: prn Frequency Based On Total Score: 0-3 = PRN 4-6 = QID and PRN 7-9 = Q4H and PRN 10-12 = Q2H and PRN Action/Events Respiratory events; Pt seen for nightly neb. Improved airway sounds post neb. Continue QID nebs. RT PABLITO 10/22/23 * Kemi Ha, RT - 10/22/2023 1806 EDT Respiratory Consult/Progress Note Indications for Respiratory therapy: SOB Data Vitals: Heart Rate: (!) 118 BPM, Resp: 22, SpO2: 95 % FIO2/O2 Device: O2 Flow Rate (L/min): 2 l/min, , O2 Device: None, ED RT Orders: Duoneb x 3 Protocol Scoring: Bronchodilator/Inhalation Therapy Frequency Bronchodilator - Clinical Indications: No clinical indications Breath Sounds: Any abnormal BS decreased Response: No change / no treatment Pulse: <100 Resp Rate: 18-25 SOB: With exertion Total Score: 3 Frequency Based On Total Score: 0-4 = PRN 5-7 = QID 8-10 = Q4H 11-12 = Q2H Airway Clearance Therapy Frequency Airway Clearance - Clinical Indications: Productive cough Breath Sounds: Rhonchi / crackles Sputum: Small (tsp) / None Consistency: None Cough Effort: Strong/ productive Color: None Total Score: 2 Frequency Based On Total Score: 0-3 = PRN 4-6 = QID and PRN 7-9 = Q4H and PRN 10-11 = Q2H and PRN Hyperinflation Therapy Frequency Hyperinflation - Clinical Indications: No clinical indications Breath Sounds: Other Surgery: No X-Ray / Atelectasis: No O2 Requirements: O2 at baseline Mobility Status: Mobile / at baseline Total: 1 Frequency Based On Total Score: 0-3 = PRN 4-6 = QID and PRN 7-9 = Q4H and PRN 10-12 = Q2H and PRN Action/Events Respiratory events; RT to bedside for duoneb tx. Pt awake and alert, experiencing some SOB with exertion. BBS decreased, scattered rhonchi. Pt has strong productive cough. Pt received duoneb x 3. Slight increase in aeration noted post txs. Pt states WOB improved also. Admission pending. Pt denies dx of COPD/asthma. Admits to smoking hx, quit 50 years ago. Pt denies home respiratory medications/oxygen or NIV. RT FATOU 10/22/23 documented in this encounter H&P Notes * Irma Palacios MD - 10/22/2023 1809 EDT Hospital Medicine Admission History & Physical Service Date: 10/22/2023 Admit Date: 10/22/23 Primary Care Provider: UNKNOWN,PROVIDER Chief Complaint: shortness of breath ELOISA Loaiza is a 78 y.o. male with hyperlipidemia, hypertension, BPH, COPD, GERD who [place] [facility] [place] with a week of progressive shortness of breath. This is associated with productive cough and some URI symptoms. Has had some mildly pleuritic chest discomfort in the last few days. On emergency department evaluation he was found to be oxygenating adequately at rest but became Tachycardic and hypoxic with ambulation. Troponin negative, NT proBNP 432, D-dimer 301 which was followed up with a CTA of the chest. The CTA was negative for pulmonary emboli or infiltrate. He was started on Solu-Medrol, azithromycin, DuoNebs for probable COPD exacerbation and hospitalist service contacted for admission. At the time of my interview, he corroborated the above history. He was also noted to be more tachycardic with heart rates in the 120s and more tachypneic. ECG repeated which appears consistent with sinus tachycardia without ischemic changes. Although tachycardia may be related to DuoNebs and Solu-Medrol, he is not meeting sepsis criteria thus lactic acid and blood cultures were requested. Review of Systems Respiratory: Positive for shortness of breath. 10 point ROS performed and negative unless otherwise noted above History reviewed. No pertinent past medical history. History reviewed. No pertinent surgical history. Social History Tobacco Use Smoking status: Former Current packs/day: 0.00 Types: Cigarettes Quit date: 1973 Years since quittin.5 Smokeless tobacco: Not on file Substance Use Topics Alcohol use: Not on file No family history on file. No current facility-administered medications on file prior to encounter. Current Outpatient Medications on File Prior to Encounter Medication Sig Dispense Refill amoxicillin (AMOXIL) 500 mg capsule TAKE FOUR CAPSULES BY MOUTH ONE HOUR BEFORE APPOINTMENT (Patient not taking: Reported on 10/22/2023) hyoscyamine (LEVBID) 0.375 mg CR tablet TAKE 1 TABLET BY MOUTH EVERY 12 HOURS DIRECTED (Patient not taking: Reported on 10/22/2023) pantoprazole (PROTONIX) 40 mg tablet Take 1 Tablet by mouth daily. (Patient not taking: Reported on10/22/2023) simethicone (GAS-X EXTRA STRENGTH) 125 mg chewable tablet Take by mouth. (Patient not taking: Reported on 10/22/2023) simvastatin (ZOCOR) 10 mg tablet Take 1 Tablet by mouth daily. No Known Allergies Objective Vitals Temp: [36.9 ??C (98.5 ??F)] , Heart Rate: [95 BPM-145 BPM] , Pulse: [95] , Resp: [16-31] , BP: (118-145)/(71-96) , SpO2: [80 %-97 %] , O2 Flow Rate (L/min): 2 l/min Numeric Pain Level (Scale 1-10): 0 Weight: Weight : 61.6 kg (135 lb 14.4 oz) Body mass index is 20.66 kg/m??. Physical Exam Vitals reviewed. Constitutional: General: He is not in acute distress. Appearance: He is not toxic-appearing. HENT: Head: Normocephalic and atraumatic. Mouth/Throat: Mouth: Mucous membranes are moist. Pharynx: Oropharynx is clear. Eyes: Conjunctiva/sclera: Conjunctivae normal. Cardiovascular: Rate and Rhythm: Normal rate and regular rhythm. Pulmonary: Effort: Pulmonary effort is normal. Breath sounds: Wheezing present. Abdominal: General: Bowel sounds are normal. There is no distension. Palpations: Abdomen is soft. There is no mass. Tenderness: There is no abdominal tenderness. There is no guarding. Musculoskeletal: General: No deformity. Cervical back: Neck supple. Right lower leg: No edema. Left lower leg: No edema. Skin: General: Skin is warm and dry. Findings: No rash. Neurological: General: No focal deficit present. Mental Status: He is alert and oriented to person, place, and time. Psychiatric: Mood and Affect: Mood normal. Behavior: Behavior normal. Labs I have personally reviewed Recent Labs 10/22/23 0938 WBC 7.95 RBC 4.52 HGB 13.6* HCT 40.2 MCV 89 MCH 30.1 MCHC 33.8 PLT 174 NEUTROABS 6.11 Recent Labs 10/22/23 0938 NA 131* K 4.6 CL 93* CO2 29 BUN 12 CREATININE 0.62* CALCIUM 9.0 MG 1.8 Recent Labs 10/22/23 0938 TROPONINI <0.034 Imaging I have independently visualized images CT ANGIO CHEST PE PROTOCOL Result Date: 10/22/[address] angiogram of the chest. No evidence of acute pulmonary embolism. 2. COPD with hyperinflated lung quintanilla. XR CHEST 2 VIEWS Result Date: 10/22/2023 Hyperinflated lungs no acute process ECG 09:31 Normal sinus rhythm Left axis deviation Incomplete right bundle branch block No previous ECG available for comparison ECG 17:20 Sinus tachycardia Incomplete right bundle branch block Left anterior fascicular block Assessment Sandee Loaiza is a 78 y.o. male with hyperlipidemia, hypertension, BPH, COPD, GERD presenting with a week of productive cough and progressive shortness of breath, found to have acute respiratory failure with hypoxia likely due to COPD exacerbation. Initially he was not meeting sepsis criteria but hasbecome tachycardic and tachypneic while in the emergency department. The tachycardia may be due to serial nebs and steroid administration but will consider evolving sepsis as well. Plan # Acute respiratory failure with hypoxia # COPD with acute exacerbation # Possible evolving sepsis -- Solu-Medrol, convert to prednisone tomorrow -- Oxygen to maintain goal saturation 88 to 92% -- Serial DuoNebs, albuterol as needed, RT consult -- Azithromycin -- No infiltrate or PE seen on CTA of the chest -- Blood cultures and lactic acid pending not meeting SIRS criteria -- COVID, flu, RSV negative. Expanded respiratory viral panel pending # Chest discomfort -- Episodic in recent days, sounds pleuritic but had some trouble fully characterizing. -- Will cycle troponins # Sinus tachycardia -- Telemetry -- Likely due to serial nebs and Solu-Medrol but consider evolving sepsis as noted above # Hyponatremia -- Mild. May have an element of hypovolemia. -- Received 500 mL IV fluid in the ED, repeat sodium in the morning # Hyperlipidemia -- Continue HRIS COORDINATOR statin # GERD -- Tells me no longer taking Protonix, can resume if symptomatic # Nonspecific abdominal pain -- Was started on hyoscyamine in [place] as needed. Tells me he is no longer taking this. VTE Prophylaxis --Lovenox Code: Limitation of Treatment DNR Trial Period intubation & non - invasive ventilation Discharge Plan --Pending clinical course Consults --None thus far Admission status Inpatient admission due to anticipated duration of hospitalization is two midnights or greater due to COPD exacerbation, acute respiratory failure with hypoxia. Discussed with Dr. Obrien in the emergency department Irma Palacios MD 10/22/2023 18:10 Addendum Lactic acid returned elevated at 3.4. Received 500 mL IV fluid bolus in response with some improvement in heart rate to the low 100s. Tachypnea seems to be settling as well, 18-20 range. Given meets criteria for severe sepsis, started on empiric cefepime and vancomycin, though we do not have an identified source at this point and there are possible alternate explanations for vital sign changes. Lactic acidosis could also potentially be exacerbated by serial nebs. Hopefully can discontinue antibiotics tomorrow after period of monitoring vitals and blood cultures. Recheck 4-hour lactic pending.Additional 500 mL bolus given now for ongoing mild tachycardia. Seems to be tolerating the volume well thus far. Total of 1500 ml IVF given thus far, which is about 25 ml/kg. Irma Palacios MD 10/22/2023 21:26 documented in this encounter ED Notes * Marylu Crow RN - 10/22/2023 1903 EDT Report to Mahnaz GODOY * Marylu Crow RN - 10/22/2023 1829 EDT Called to lab. DO NOT need to collect more viral swab. Lab will run off existing specimen. * Javier Shi - 10/22/2023 1232 EDT requested walking trial. Pt was able to walk w/o assistance but developed some SOB and SpO2 dropped from 94% to 84%. HR also bel to 125 bpm. Pt was returned to room and HR and SpO2 improved w/ rest. * Phong Obrien MD - 10/22/2023 0825 EDT Emergency Department Visit Medical Decision Making Pleasant 78-year-old with minimal past medical history presents with 2 weeks of increasing shortness of breath with exertion, no orthopnea or PND. Lungs diminished, not hypoxemic, not hypertensive, vital signs unremarkable. Minimally productive cough with whitish sputum only. No hemoptysis or purulence. Trope negative, BNP 400, white count 7000, hematocrit 40, normal electrolytes without renal dysfunction, normal platelets. Chest x-ray without focal infiltrate or effusion Tested ambulation: Desaturated to 85%, heart rate up to 120s, significantly short of breath. CT angio chest ordered 15:22 CT chest negative no PE no pneumonia. Hyperinflation consistent with COPD. Lungs reexamined, has diffuse wheezing after single neb, given 2 more DuoNebs and Solu-Medrol. Azithromycin. Will give an hour or 2 posttreatment to see if he improves, if not we will consider admission Continued to be hypoxic, will admit 16:36 Heart rate 140s EKG (independent interpretation): Normal sinus rhythm, leftward axis, normal intervals, no significant ST segment changes, interpreted independently contemporaneously by ED physician. Medical Decision Making Broad differential entertained for patient's shortness of breath including congestive heart failure, pulmonary embolism, atypical acute coronary syndrome, COPD exacerbation, anemia, metabolic derangement such as renal failure or acidosis,, pneumonia, pneumothorax, asthma exacerbation Problems Addressed: Hypoxemia: complicated acute illness or injury Wheezing: complicated acute illness or injury Amount and/or Complexity of Data Reviewed Labs: ordered. Decision-making details documented in ED Course. Radiology: ordered. Decision-making details documented in ED Course. ECG/medicine tests: ordered and independent interpretation performed. Decision- making details documented in ED Course. Risk OTC drugs. Prescription drug management. Decision regarding hospitalization. Final diagnoses: None Disposition: No disposition on file Chief complaint: Shortness of breath HPI Sandee Loaiza is a 78 y.o. male who presents to the ED for shortness of breath beginning over the last 2 weeks, particular worse with exertion, orthopnea or PND, associated with epigastric discomfort, burning sometimes up into the chest that comes and goes, nasty taste in the mouth overnight. No tim chest pain. No shoulder or jaw discomfort, nausea or vomiting. No fevers or shaking chills. Cough productive of whitish sputum only. No leg pain or swelling, focal weakness, numbness or tingling, headache, sore throat, myalgias or arthralgias, diarrhea, black or bloody stools. No other findings onreview of systems History was provided by: Patient Patient's pertinent PMH, FH, SH were reviewed and edited as necessary. Nursing notes reviewed. A medical screening exam was performed. Physical Exam BP 140/77 Pulse 95 Temp 36.9 ??C (98.5 ??F) (Oral) Resp 19 Ht 172.7 cm (68) Wt 61.6 kg (135 lb 14.4 oz) SpO2 94% BMI 20.66 kg/m?? Physical Exam Vitals and nursing note reviewed. Constitutional: General: He is not in acute distress. Appearance: He is well-developed. He is not diaphoretic. HENT: Head: Normocephalic and atraumatic. Eyes: General: No scleral icterus. Pupils: Pupils are equal, round, and reactive to light. Neck: Vascular: No JVD. Cardiovascular: Rate and Rhythm: Normal rate and regular rhythm. Heart sounds: Normal heart sounds. No murmur heard. No friction rub. No gallop. Pulmonary: Effort: Pulmonary effort is normal. No respiratory distress. Breath sounds: No stridor. Decreased breath sounds, wheezing and rhonchi present. No rales. Chest: Chest wall: No tenderness. Abdominal: General: Bowel sounds are normal. Palpations: Abdomen is soft. Tenderness: There is no abdominal tenderness. There is no guarding or rebound. Musculoskeletal: General: No tenderness. Normal range of motion. Cervical back: Normal range of motion and neck supple. Skin: General: Skin is warm and dry. Coloration: Skin is not pale. Findings: No erythema or rash. Neurological: General: No focal deficit present. Mental Status: He is alert and oriented to person, place, and time. Psychiatric: Behavior: Behavior normal. Thought Content: Thought content normal. Judgment: Judgment normal. Procedures Procedures documented in this encounter Miscellaneous Notes * Plan of Care - Lyssa Alfonso RN - 10/23/2023 1218 EDT Nursing Discharge Note D: Patient noted with discharge orders to: home. A: Prescriptions e-scripted. Reviewed discharge instructions and prescriptions with Patient and Family IV d/c'd. Belongings collected and sent home with patient. R: Patient and Family verbalized understanding of discharge instructions and denied further questions. LYSSA ALFONSO RN 10/23/2023 12:18 Problem: Delirium Prevention Management Goal: Mental status/cognition is maintained/returned to baseline Outcome: Completed Goal: Sensory Stimuli Reduction Outcome: Completed Goal: Early Mobilization Is Achieved Outcome: Completed Goal: Normal Sleep Promoted Outcome: Completed Problem: High Fall Risk: Goal: Patient will Remain Free of Falls due to Dizziness/Vertigo Outcome: Completed Problem: High Fall Risk: Goal: Patient Will Remain Free from Fall-Related Injury Outcome: Completed Problem: Sensory: Goal: Ability to compensate for vision loss will be supported Outcome: Completed Problem: OXYGENATION/REPIRATORY FUNCTION Goal: Patient Will Maintain Patent Airway Outcome: Completed Goal: Patient will achieve/maintain baseline respiratory rate/effort Description: Respiratory rate and effort will be within normal limits for the patient Outcome: Completed Problem: DROPLET PRECAUTIONS Goal: Prevent Transmission Of Infection Description: ??Private Room or cohort with patient with same organism if approved by Infection Prevention ??Wear a surgical mask when entering room ??Prior to transport, ensure patient is wearing a mask and follows Respiratory Hygiene/Cough Etiquette ??Prior to transport, notify receiving department of precautions ??Provide patient and family education regarding isolation ??Use only patient specific equipment in room Outcome: Completed * Plan of Care - Fiona Manzanares - 10/23/2023 0742 EDT Patient is being ruled out for respiratory viruses. Please maintain droplet precautions. Do not cohort at this time. Please message [facility] [place]fection Prevention via Secure Chat with questions. * Plan of Care - Denisse Adams RN - 10/23/2023 0639 EDT Sandee Loaiza admitted with acute respiratory failure with hypoxia from the ED to via cart/stretcher. Patient arrives in fair condition. Patient Ambulated: Walked without assistance to bed. BP 135/69 (BP Cuff Location: Left arm, BP Patient Position: Sitting) Pulse 95 Temp 36.6 ??C (97.9 ??F) (Oral) Resp 20 Ht 172.7 cm (68) Wt 61.1 kg (134 lb 9.6 oz) SpO2 95% BMI 20.47 kg/m?? Patient oriented to room, call stephen, and items within reach. Skin Assessment refused by patient. See flowsheets for full patient assessment. DENISSE ADAMS RN FOUR EYES SKIN ASSESSMENT Four Eyes skin assessment was refused by patient. No skin issues noted from what this nurse could observe. Pt denies skin issues. Last Kwesi Score: 20 Pt is A+OX3, noted intermittent confusion overnight but pt stating he is very tired. Pt weaned to RA overnight and maintaining oxygen sats. Shift assessment completed (see flowsheets). Meds given perMAR. Tele monitoring- sinus tachy with a noted first degree AV block- MD made aware. Denies pain. WOLF. Up to bathroom with SBA, slow and steady gait noted. Pt pleasant and cooperative. Respirations even and unlabored. Problem: Delirium Prevention Management Goal: Normal Sleep Promoted Outcome: Ongoing Problem: High Fall Risk: Goal: Patient Will Remain Free from Fall-Related Injury Outcome: Ongoing Problem: OXYGENATION/REPIRATORY FUNCTION Goal: Patient will achieve/maintain baseline respiratory rate/effort Description: Respiratory rate and effort will be within normal limits for the patient Outcome: Ongoing documented in this encounter Plan of Treatment Scheduled Orders Name Type Priority Associated Diagnoses Orde r Schedule PULMONARY FUNCTION TESTING PFT Routine Wheezing Chronic obstructive pulmonary disease with acute exacerbation (HCC-CMS) 1 Occurrences starting 10/23/2023 until 04/24/2025 documented as of this encounter Procedures Procedure Name Priority Date/Time Associated Diagnosis Comments ECG REPORT - SCANNED 10/24/2023 13:40 EDT MRSA PCR Routine 10/23/2023 10:24 EDT PROCALCITONIN Routine 10/23/2023 6:16 EDT LACTIC ACID Routine 10/23/2023 6:16 EDT COMPLETE BLOOD COUNT AND DIFFERENTIAL Routine 10/23/2023 6:16 EDT MAGNESIUM Routine 10/23/2023 6:16 EDT BASIC METABOLIC PANEL (BMP) Routine 10/23/2023 6:16 EDT LACTIC ACID WITH REFLEX - USE FOR INITIAL SEPSIS EVALUATION Routine 10/23/2023 0:33 EDT BACTERIAL CULTURE/SMEAR, RESPIRATORY Routine 10/22/2023 20:38 EDT UA WITH REFLEX SEDIMENT (CULTURE IF POS) Routine 10/22/2023 18:47 EDT UA SEDIMENT + REFLEX TO CULTURE Today 10/22/2023 18:47 EDT ECG REPORT - SCANNED 10/22/2023 18:34 EDT ECG REPORT - SCANNED 10/22/2023 18:24 EDT BACTERIAL CULTURE, BLOOD Routine 10/22/2023 18:20 EDT RESPIRATORY CARE EVALUATION ONLY Routine 10/22/2023 18:08 EDT BACTERIAL CULTURE, BLOOD Routine 10/22/2023 17:56 EDT TROPONIN I Routine 10/22/2023 17:56 EDT LACTIC ACID STAT 10/22/2023 17:56 EDT EKG 12-LEAD STAT 10/22/2023 17:20 EDT SARS COV2, FLU A/B, RSV DETECT BY PCR STAT 10/22/2023 16:55 EDT EXPANDED RESPIRATORY VIRAL PANEL, PCR (DOES NOT INCLUDE INFLUENZA OR RSV) Routine 10/22/2023 16:[address] ANGIO CHEST PE PROTOCOL STAT 10/22/2023 13:46 EDT XR CHEST 2 VIEWS STAT 10/22/2023 9:54 EDT HOLD BLUE TOP STAT 10/22/2023 9:38 EDT TROPONIN I STAT 10/22/2023 9:38 EDT D-DIMER STAT Add-on 10/22/2023 9:38 EDT COMPLETE BLOOD COUNT AND DIFFERENTIAL STAT 10/22/2023 9:38 EDT NT PRO BNP STAT 10/22/2023 9:38 EDT MAGNESIUM STAT 10/22/2023 9:38 EDT BASIC METABOLIC PANEL (BMP) STAT 10/22/2023 9:38 EDT EKG 12-LEAD STAT 10/22/2023 9:31 EDT documented in this encounter Results * ECG REPORT - SCANNED (10/24/2023 13:40 EDT) 10/24/2023 13:4 0 EDT us Scan 2 Molecular Modeler PROCEDURE/MINOR SURGICAL OR DERABLES Final Result * MRSA PCR (10/23/2023 10:24 EDT) Pathologist [facility] MRSA PCR Not Detected Not Detected 10/23/2023 12:42 EDT [facility] Comment:MRSA target DNA is n ot detected (presumed not colonized with MRSA). Swab BOTH ANTERIOR NARES / Unknown Swab / Unknown 10/23/2023 10:24 EDT 10/23/2023 10:37 EDT us Ryanne Arana MD MICROBIOLOGY - GENE RAL ORDERABLES Final Result [facility] [address] [place] [address] * PROCALCITONIN (10/23/2023 6:16 EDT) Pathologist [facility] Procalcitonin <0.05 See Note ng/mL 10/23/2023 7:44 EDT [facility] Comment: NOTE: Reference Range: <0.5 ng/mL - Low risk of severe sepsis >2.0 ng/mL - High risk of severe sepsis Blood VENOUS BLOOD / Unknown Venipuncture / Unknown 10/23/2023 6:16 EDT 10/23/2023 6:38 EDT Rosa Maria Calhoun DO CHEMISTRY & BLOOD GAS ORDER ADAMS Final Result Performing Organization Address [facility]/ZIP Co de Phone Number [facility] [address] [place] [address] * MAGNESIUM (10/23/2023 6:16 EDT) Magnesium 1.8 1.7 - 2.8 mg/dL 10/23/2023 7:13 EDT [facility] Blood VENOUS BLOOD / Unknown Venipuncture / Unknown 10/23/2023 6:16 EDT 10/23/2023 6:38 EDT Rosa Maria Calhoun DO CHEMISTRY & BLOOD GAS ORDER ADAMS Final Result Performing Organization Address [facility] de Phone Number [facility] [address] [place] [address] * LACTIC ACID (10/23/2023 6:16 EDT) Lactic Acid 1.6 <=2.0 mmol/L 10/23/2023 6:52 EDT [facility] Blood VENOUS BLOOD / Unknown Venipuncture / Unknown 10/23/2023 6:16 EDT 10/23/2023 6:36 EDT Rosa Maria Calhoun DO CHEMISTRY & BLOOD GAS ORDER ADAMS Final Result Performing Organization Address [facility] Co de Phone Number [facility] [address] [place] [address] * (ABNORMAL) COMPLETE BLOOD COUNT AND DIFFERENTIAL (10/23/2023 6:16 EDT) WBC 7.89 4.00 - 10.40 K/cmm 10/23/2023 7:12 [facility] RBC 3.90(L) 4.36 - 5.78 M/cmm 10/23/2023 7:12 [facility] Hemoglobin 11.6(L) 13.8 - 17.3 g/dL 10/23/2023 7:12 [facility] HCT 34.5(L) 39.5 - 50.2 % 10/23/2023 7:12 [facility] MCV 89 81 - 95 fL 10/23/2023 7:12 [facility] MCH 29.7 27.6 - 33.0 pg 10/23/2023 7:12 [facility] MCHC 33.6 32.8 - 36.4 g/dL 10/23/2023 7:12 [facility] RDW-CV 12.9 <14.2 % 10/23/2023 7:12 [facility] RDW-SD 41.9 <46.0 fl 10/23/2023 7:12 [facility] PLT 160 141 - 377 K/cmm 10/23/2023 7:12 [facility] MPV 10.1 9.5 - 12.7 fL 10/23/2023 7:12 [facility] % Neutrophils 85.7 % 10/23/2023 7:12 [facility] % Lymphocytes 9.8 % 10/23/2023 7:12 [facility] % Monocytes 3.8 % 10/23/2023 7:12 [facility] % Eosinophils 0.0 % 10/23/2023 7:12 [facility] % Basophils 0.1 % 10/23/2023 7:12 [facility] % Immature Grans 0.6 <0.9 % 10/23/19 7:12 [facility] Absolute Neutrophils 6.76 2.20 - 8.85 K/cmm 10/23/2023 7:12 [facility] Absolute Lymphocytes 0.77(L) 1.09 - 3.30 K/cmm 10/23/2023 7:12 [facility] Absolute Monocytes 0.30 0.10 - 0.80 K/cmm 10/23/2023 7:12 [facility] Absolute Eosinophils 0.00(L) 0.03 - 0.61 K/cmm 10/23/2023 7:12 [facility] ABS Basophils 0.01 0.01 - 0.11 K/cmm 10/23/2023 7:12 [facility] Absolute Immature Grans 0.05 0.00 - 0.06 K/cmm 10/23/2023 7:12 [facility] Type of Differential: Auto 10/23/2023 7:12 [facility] Blood VENOUS BLOOD / Unknown Venipuncture / Unknown 10/23/2023 6:16 EDT 10/23/2023 6:38 EDT us Irma Palacios MD PACKAGES & DNA PROBE DANIEL CERVANTES Final Result [facility] [address] [place] [address] * (ABNORMAL) BASIC METABOLIC PANEL (BMP) (10/23/2023 6:16 EDT) Sodium 134(L) 136 - 145 mmol/L 10/23/2023 7:14 [facility] Potassium 4.2 3.5 - 5.0 mmol/L 10/23/2023 7:14 [facility] Chloride 103 96 - 110 mmol/L 10/23/2023 7:14 [facility] CO2 Total 21(L) 22 - 32 mmol/L 10/23/2023 7:14 [facility] Anion Gap 10 5 - 14 mmol/L 10/23/2023 7:14 [facility] Glucose 117(H) 70 - 99 mg/dl 10/23/2023 7:14 [facility] Calcium 8.7 8.5 - 10.5 mg/dL 10/23/2023 7:14 [facility] BUN 12 10 - 26 mg/dL 10/23/2023 7:14 [facility] Creatinine 0.52(L) 0.66 - 1.25 mg/dL 10/23/2023 7:14 [facility] eGFR 102 >60 mL/min/1.73 m2 10/23/2023 7:14 [facility] Blood VENOUS BLOOD / Unknown Venipuncture / Unknown 10/23/2023 6:16 EDT 10/23/2023 6:38 EDT Irma Palacios MD CHEMISTRY & BLOOD GAS ORD ERABLES Final Result Performing Organization Address City/[facility]/ZIP Co de Phone Number [facility] [address] [place] [address] * (ABNORMAL) LACTIC ACID WITH REFLEX - USE FOR INITIAL SEPSIS EVALUATION (10/23/2023 0:33 EDT) [facility] Lactic Acid 3.3(HH) <=2.0 mmol/L 10/23/2023 1:00 EDT [facility] Blood VENOUS BLOOD / Unknown Venipuncture / Unknown 10/23/2023 0:33 EDT 10/23/2023 0:40 EDT Irma Palacios MD CHEMISTRY & BLOOD GAS ORD ERABLES Final Result Performing Organization Address [facility]/ZIP Co de Phone Number [facility] [address] [place] [address] * (ABNORMAL) BACTERIAL CULTURE/SMEAR, RESPIRATORY (10/22/2023 20:38 EDT) Organism ID Moderate VITEK SUSCEPTIBILITY 10/[facility]/2023 9[facility] Comment: Usual sin-pharyngeal sukh Smear Many Neutrophils Present(A) 10/24/2023 9:39 EDT [facility] Smear Rare Squamous Epithelial Cells(A) 10/24/2023 9:39 [facility] Smear Respiratory epithelial cells absent(A) 10/24/2023 9:39 EDT [facility] Smear Few Mixed gram positive and gram negative organisms(A) 10/24/2023 9:39 EDT [facility] Smear Mucus present(A) 10/24/2023 9:39 [facility] Swab SPUTUM / Unknown Swab / Unknown 20:38 EDT 10/22/2023 20:43 EDT us Irma Palacios MD MICROBIOLOGY - GENERAL OR DERABLES Final Result [facility] [address] [place] [address] * (ABNORMAL) UA SEDIMENT + REFLEX TO CULTURE (10/22/2023 18:47 EDT) Urine RBC Count, Manual 0 - 2 0 - 2 Cells/HPF 10/22/2023 19:04 [facility] Urine WBC Count 0 - 3 0 - 3 Cells/HPF 10/22/2023 19:04 [facility] Urine Squamous Count, Manual Few(A) None Seen Cells/HPF 10/22/2023 19:04 [facility] Urine Hyaline Cast Count, Manual <=10 <=10 Casts/LPF 10/22/2023 19:04 [facility] Urine Bacteria Count, Manual Few(A) None Seen Bacteria/H PF 10/22/2023 19:04 [facility] Urine URINE SPECIMEN OBTAINED BY CLEAN CATCH PROCEDURE / Unknown Urine Collect / Unknown 10/22/2023 18:47 EDT [facility]:04 [facility] Urine Sediment Analysis results are unreliable on urines that are unrefrigerated for >2 hrs or refrigerated >8 hrs. NOTE: Reflex to Urine Culture test is not indicated based on Urine Sediment Analysis results. us Irma Palacios MD URINALYSIS ORDERABLES Fin al Result [facility] [address] [place] [address] * (ABNORMAL) UA CASCADE TO CULTURE (10/22/2023 18:47 EDT) Color UA Yellow Colorless, Yellow 10/22/2023 19:00 [facility] Clarity UA Clear Clear 10/22/2023 19:00 [facility] Glucose UA Negative Negative mg/dL 10/22/2023 19:00 [facility] Bilirubin UA Negative Negative 10/22/2023 19:00 [facility] Ketones UA Negative Negative 10/22/2023 19:00 [facility] Specific [place], Urine <=1.005 1.001 - 1.030 10/22/2023 19:00 [facility] Blood UA 1+(A) Negative 10/22/2023 19:00 [facility] pH, UA 5.5 <8.5 10/22/2023 19:00 [facility] Protein UA Negative Negative mg/dL 10/22/2023 19:00 [facility] Urobilinogen UA 0.2 0.2-1.0 mg/dL mg/dL 10/22/2023 19:00 [facility] Nitrite UA Negative Negative 10/22/2023 19:00 [facility] Leukocyte Esterase UA Negative Negative 10/22/2023 19:00 [facility] Urine URINE SPECIMEN OBTAINED BY CLEAN CATCH PROCEDURE / Unknown Urine Collect / Unknown 10/22/2023 18:47 EDT 10/22/2023 18:51 EDT us Irma Palacios MD URINALYSIS ORDERABLES Fin al Result Performing Organization Address [facility] Co de Phone Number [facility] [address] [place] [address] * ECG REPORT - SCANNED (10/22/2023 18:34 EDT) 10/22/2023 18:3 4 EDT us Scan 2 Molecular Modeler PROCEDURE/MINOR SURGICAL OR DERABLES Final Result * ECG REPORT - SCANNED (10/22/2023 18:24 EDT) 10/22/2023 18:2 4 EDT us Scan 2 Molecular Modeler PROCEDURE/MINOR SURGICAL OR DERABLES Final Result * BACTERIAL CULTURE, BLOOD (10/22/2023 18:20 EDT) Organism ID No Growth at 5 days VITEK SUSCEPTIBILITY 10/27/2023 18:31 EDT [facility] Blood VENOUS BLOOD / Unknown Port / Unknown 10/22/2023 18:20 EDT 10/22/2023 18:24 EDT us Irma Palacios MD MICROBIOLOGY - GENERAL OR DERABLES Final Result Performing Organization Address City/[facility]/ZIP Co de Phone Number [facility] [address] [place] [address] * TROPONIN I (10/22/2023 17:56 EDT) Troponin I (ng/mL) <0.034 <0.034 ng/mL 10/22/2023 18:37 EDT [facility] Blood VENOUS BLOOD / Unknown Venipuncture / Unknown 10/22/2023 17:56 EDT 10/22/2023 18:03 EDT Narrative [facility] - 10/22/2023 18:37 EDT The results of this assay can be falsely lowered due to the consumption of Biotin. us Irma Palacios MD CHEMISTRY & BLOOD GAS ORD ERABLES Final Result Performing Organization Address [facility] Co de Phone Number [facility] [address] [place] [address] * (ABNORMAL) LACTIC ACID (10/22/2023 17:56 EDT) Lactic Acid 3.4(HH) <=2.0 mmol/L 10/22/2023 18:23 EDT [facility] Blood VENOUS BLOOD / Unknown Venipuncture / Unknown 10/22/2023 17:56 EDT 10/22/2023 18:04 EDT us Irma Palacios MD CHEMISTRY & BLOOD GAS ORD ERABLES Final Result Performing Organization Address [facility] Co de Phone Number [facility] [address] [place] [address] * BACTERIAL CULTURE, BLOOD (10/22/2023 17:56 EDT) Pathologist [facility] Organism ID No Growth at 5 days VITEK SUSCEPTIBILITY 10/27/2023 18:15 EDT [facility] Blood VENOUS BLOOD / Unknown Venipuncture / Unknown 10/22/2023 17:56 EDT 10/22/2023 18:03 EDT us Irma Palacios MD MICROBIOLOGY - GENERAL OR DERABLES Final Result Performing Organization Address [facility] Co de Phone Number [facility] [address] [place] [address] * EKG 12-LEAD (10/22/2023 17:20 EDT) 10/22/2023 17:2 0 EDT Narrative [facility] EPIPH10/21/2024 18:16 EDT ? [facility] ? Test Date: ?2023-10-22 Pat Name: ? SANDEE ADITYA ?Department: ? Room: ? C02 Gender: ? Male ? Extrusion Manager: ?? L : ?1945 ? Requested By: MARINA Duggan Order Number: [id number] ? Reading MD: ?? RENETTA FROST MD ? Measurements Intervals ?[place] ? Rate: ? 121 ?P: ?78 RI: ? 180 ?QRS: ?-50 QRSD: ? 96 ? T: ?71 QT: ? 300 ? QTc: ?426 ? Interpretive Statements Sinus tachycardia Incomplete right bundle branch block Left anterior fascicular block Compared to ECG 10/22/2023 09:31:12 Sinus rhythm no longer present I reviewed the tracing and have either agreed or edited the findings in this report. Electronically Signed On 10-22-2023 18:16:42 EDT by RENETTA FROST MD. Procedure Note Renetta Frost MD - 10/22/2023 [facility] Test Date: 2023-10-22 Pat Name: SANDEE LOAIZA Department: Room: C02 Gender: Male Extrusion Manager: Angeli : 1945 Requested By: MARINA Duggan Order Number: [id number] Reading MD: RENETTA FROST MD Measurements Intervals [place] Rate: 121 P: 78 RI: 180 QRS: -50 QRSD: 96 T: 71 QT: 300 QTc: 426 Interpretive Statements Sinus tachycardia Incomplete right bundle branch block Left anterior fascicular block Compared to ECG 10/22/2023 09:31:12 Sinus rhythm no longer present I reviewed the tracing and have either agreed or edited the findings inthis report. Electronically Signed On 10-22-2023 18:16:42 EDT by RENETTA NORRIS. us Phong Obrien MD CARDIAC ECG ORDERABLES Final Result [facility] * (ABNORMAL) EXPANDED RESPIRATORY VIRAL PANEL, PCR (DOES NOT INCLUDE INFLUENZA OR RSV) (10/22/2023 16:55 EDT) Paraflu Type 1 Rslt (PF1RES) Negative Negative 10/23/2023 15:36 EDT [facility] Paraflu Type 2 Rslt (PF2RES) Negative Negative 10/23/2023 15:36 EDT [facility] Paraflu Type 3 Rslt (PF3RES) Negative Negative 10/23/2023 15:36 EDT [facility] Paraflu Type 4 Rslt Negative Negative 10/23/2023 15:36 EDT [facility] Rhinovirus RNA Rslt (RVRES) Negative Negative 10/23/2023 15:36 EDT [facility] Metapneumovirus RNA Rslt (HMVRES) Positive(A) Negative 10/23/2023 15:36 EDT [facility] Adenovirus DNA Rslt (ADVRES) Negative Negative 10/23/2023 15:36 EDT [facility] Swab NASOPHARYNGEAL STRUCTURE / Unknown Swab / Unknown 10/22/2023 16:55 EDT 10/22/2023 18:31 EDT Irma Palacios MD MICROBIOLOGY - GENERAL OR DERABLES Final Result [facility] [address] [place] [id number] * SARS COV2, FLU A/B, RSV DETECT BY PCR (10/22/2023 16:55 EDT) FLU A RNA Result (FLARES) Negative Negative 10/22/2023 17:53 EDT [facility] FLU B RNA Result (FLBRES) Negative Negative 10/22/2023 17:53 EDT [facility] RSV RNA Result (RSVRES) Negative Negative 10/22/2023 17:53 EDT [facility] COVID-19 rt-PCR Result Negative Negative 10/22/2023 17:53 EDT [facility] Comment: The 2019 novel coronavirus (SARS-CoV-2) target nucleic acids are not detected. Performed on the [employer] GeneXpert Instrument Swab NASOPHARYNGEAL STRUCTURE / Unknown Swab / Unknown 10/22/2023 16:55 EDT 10/22/2023 17:05 EDT us Phong Obrien MD MICROBIOLOGY - GENERAL ORDER ADAMS Final Result [facility] [address] [place] [address] * CT ANGIO CHEST PE PROTOCOL (10/22/2023 13:46 EDT) Anatomical Region Laterality Modality Chest Computed Tomogra phy 10/22/2023 13:3 6 EDT Impressions 10/22/2023 14:45 EDT 1. ?? Negative CT angiogram of the chest. No evidence of acute pulmonary embolism. 2. ?? COPD with hyperinflated lung quintanilla. THIS DOCUMENT HAS BEEN ELECTRONICALLY SIGNED BY RENAE HAWK MD FOR ANY QUESTIONS OR CONCERNS REGARDING THIS REPORT PLEASE CALL [facility] AT [phone] Narrative 10/22/2023 14:45 EDT PROCEDURE INFORMATION: Exam: CTA Chest With Contrast Exam date and time: 10/22/2023 1:36 PM Age: 78 years old Clinical indication: Other: Sob/cough TECHNIQUE: Imaging protocol: Computed tomographic angiography of the chest with contrast. Exam focused on the arteries. 3D rendering (Not supervised by radiologist): MIP and/or 3D reconstructed images were created by the technologist. Radiation optimization: All CT scans at this facility use at least one of these dose optimization techniques: automated exposure control; mA and/or kV adjustment per patient size (includes targeted exams where dose is matched to clinical indication); or iterative reconstruction. Contrast material: OMNI 350; Contrast volume: 100 ml; Contrast route: INTRAVENOUS (IV); ?? COMPARISON: CR XR CHEST 2 VIEWS 10/22/2023 9:48 AM FINDINGS: Pulmonary arteries: Pulmonary vasculature is adequately opacified without filling defects or other evidence of acute pulmonary embolism. Aorta: Unremarkable. No aortic aneurysm. No aortic dissection. Lungs: Lung quintanilla are hyperinflated. ??Chronic biapical changes. No infiltrates or overt CHF. No suspicious pulmonary nodules appreciated. Pleural spaces: Unremarkable. No pneumothorax. No pleural effusion. Heart: Heart is not significantly enlarged. No significant coronary artery calcifications. No significant pericardial effusion. Lymph nodes: Unremarkable. No enlarged lymph nodes. Bones/joints: ??Degenerative changes both shoulder joints with multiple small indistinct loose bodies.. No acute fracture. Soft tissues: Unremarkable. Procedure Note Renae Hawk MD - 10/22/2023 PROCEDURE INFORMATION: Exam: CTA Chest With Contrast Exam date and time: 10/22/2023 1:36 PM Age: 78 years old Clinical indication: Other: Sob/cough TECHNIQUE: Imaging protocol: Computed tomographic angiography of the chest with contrast. Exam focused on the arteries. 3D rendering (Not supervised by radiologist): MIP and/or 3D reconstructed images were created by the technologist. Radiation optimization: All CT scans at this facility use at least one of these dose optimization techniques: automated exposure control; mA and/or kV adjustment per patient size (includes targeted exams where dose is matched to clinical indication); or iterative reconstruction. Contrast material: OMNI 350; Contrast volume: 100 ml; Contrast route: INTRAVENOUS (IV); COMPARISON: CR XR CHEST 2 VIEWS 10/22/2023 9:48 AM FINDINGS: Pulmonary arteries: Pulmonary vasculature is adequately opacified without filling defects or other evidence of acute pulmonary embolism. Aorta: Unremarkable. No aortic aneurysm. No aortic dissection. Lungs: Lung quintanilla are hyperinflated. Chronic biapical changes. No infiltrates or overt CHF. No suspicious pulmonary nodules appreciated. Pleural spaces: Unremarkable. No pneumothorax. No pleural effusion. Heart: Heart is not significantly enlarged. No significant coronary artery calcifications. No significant pericardial effusion. Lymph nodes: Unremarkable. No enlarged lymph nodes. Bones/joints: Degenerative changes both shoulder joints with multiple small indistinct loose bodies.. No acute fracture. Soft tissues: Unremarkable. IMPRESSION 1. Negative CT angiogram of the chest. No evidence of acute pulmonary embolism. 2. COPD with hyperinflated lung quintanilla. THIS DOCUMENT HAS BEEN ELECTRONICALLY SIGNED BY RENAE HAWK MD FOR ANY QUESTIONS OR CONCERNS REGARDING THIS REPORT PLEASE CALL [facility] [phone] us Phong Obrien MD IMG CT ORDERABLES Final Resu lt * XR CHEST 2 VIEWS (10/22/2023 9:54 EDT) Anatomical Region Laterality Modality Computed Radiogr aphy 10/22/2023 9:48 EDT Impressions 10/22/2023 11:18 EDT Hyperinflated lungs no acute process THIS DOCUMENT HAS BEEN ELECTRONICALLY SIGNED BY ALEXUS ZUÑIGA DO FOR ANY QUESTIONS OR CONCERNS REGARDING THIS REPORT PLEASE CALL [facility] AT [phone] Narrative 10/22/2023 11:18 EDT PROCEDURE INFORMATION: Exam: XR Chest Exam date and time: 10/22/2023 9:48 AM Age: 78 years old Clinical indication: Other: SOB TECHNIQUE: Imaging protocol: Radiologic exam of the chest. Views: 2 views. COMPARISON: No relevant prior studies available. FINDINGS: Lungs: Hyperinflated lungs. No infiltrate or effusion Pleural spaces: Unremarkable. No pleural effusion. No pneumothorax. Heart/Mediastinum: Unremarkable. No cardiomegaly. Bones/joints: Unremarkable. Procedure Note Alexus Zuñiga MD - 10/22/2023 PROCEDURE INFORMATION: Exam: XR Chest Exam date and time: 10/22/2023 9:48 AM Age: 78 years old Clinical indication: Other: SOB TECHNIQUE: Imaging protocol: Radiologic exam of the chest. Views: 2 views. COMPARISON: No relevant prior studies available. FINDINGS: Lungs: Hyperinflated lungs. No infiltrate or effusion Pleural spaces: Unremarkable. No pleural effusion. No pneumothorax. Heart/Mediastinum: Unremarkable. No cardiomegaly. Bones/joints: Unremarkable. IMPRESSION Hyperinflated lungs no acute process THIS DOCUMENT HAS BEEN ELECTRONICALLY SIGNED BY ALEXUS ZUÑIGA DO FOR ANY QUESTIONS OR CONCERNS REGARDING THIS REPORT PLEASE CALL [facility] [phone] Phong Obrien MD IMG DIAGNOSTIC IMAGING ORDER ADAMS Final Result * (ABNORMAL) D-DIMER (10/22/2023 9:38 EDT) D-Dimer 301(H) <=230 ng/mL DDU 10/22/2023 12:49 EDT [facility] Blood VENOUS BLOOD / Unknown Venipuncture / Unknown 10/22/2023 9:38 EDT 10/22/2023 9:58 EDT Narrative [facility] - 10/22/2023 12:49 EDT Cutoff value for the exclusion of DVT and PE: 230 ng/mL D-dimer units. Any use of the age-adjusted cutoff value is a post-analytic modification of this FDA-approved test and is considered off-label use of the test result. us Phong Obrien MD HEMATOLOGY & PF4 ORDERABLES Final Result Performing Organization Address [facility] Co de Phone Number [facility] [address] [place] [address] * (ABNORMAL) NT PRO BNP (10/22/2023 9:38 EDT) NT-pro BNP 432(H) <326 pg/mL 10/22/2023 10:31 EDT [facility] Comment: In the acute setting NT-proBNP values <300 pg/mL have a 98% NPV for excluding acute heart failure. In outpatient populations, NT-proBNP values <125 have a 99% NPV for excluding heart failure. Blood VENOUS BLOOD / Unknown Venipuncture / Unknown 10/22/2023 9:38 EDT 10/22/2023 9:58 EDT us Phong Obrien MD CHEMISTRY & BLOOD GAS ORDERA BLES Final Result Performing Organization Address [facility] [address] [place] [address] * HOLD BLUE TOP (10/22/2023 9:38 EDT) Hold Hold 10/22/2023 11:01 EDT [facility] Blood VENOUS BLOOD / Unknown Venipuncture / Unknown 10/22/2023 9:38 EDT 10/22/2023 9:58 EDT us Phong Obrien MD LAB INFO SERVICE AND SUPPORT & PHONE RESULT Final Result Performing Organization Address [facility] Co de Phone Number [facility] [address] [place] [address] * MAGNESIUM (10/22/2023 9:38 EDT) Pathologist [facility] Magnesium 1.8 1.7 - 2.8 mg/dL 10/22/2023 10:18 EDT [facility] Blood VENOUS BLOOD / Unknown Venipuncture / Unknown 10/22/2023 9:38 EDT 10/22/2023 9:58 EDT Phong Obrien MD CHEMISTRY & BLOOD GAS ORDERA BLES Final Result Performing Organization Address [facility] Co de Phone Number [facility] [address] [place] [address] * TROPONIN I (10/22/2023 9:38 EDT) [facility] Troponin I (ng/mL) <0.034 <0.034 ng/mL 10/22/2023 10:30 EDT [facility] Blood VENOUS BLOOD / Unknown Venipuncture / Unknown 10/22/2023 9:38 EDT 10/22/2023 9:58 EDT Narrative [facility] - 10/22/2023 10:30 EDT The results of this assay can be falsely lowered due to the consumption of Biotin. us Phong Obrien MD CHEMISTRY & BLOOD GAS ORDERA BLES Final Result Performing Organization Address [facility] de Phone Number [facility] [address] [place] [address] * (ABNORMAL) BASIC METABOLIC PANEL (BMP) (10/22/2023 9:38 EDT) [facility] Sodium 131(L) 136 - 145 mmol/L 10/22/2023 10:18 EDT [facility] Potassium 4.6 3.5 - 5.0 mmol/L 10/22/2023 10:18 EDT [facility] Chloride 93(L) 96 - 110 mmol/L 10/22/2023 10:18 EDT [facility] CO2 Total 29 22 - 32 mmol/L 10/22/2023 10:18 [facility] Anion Gap 9 5 - 14 mmol/L 10/22/2023 10:18 [facility] Glucose 117(H) 70 - 99 mg/dl 10/22/2023 10:18 [facility] Calcium 9.0 8.5 - 10.5 mg/dL 10/22/2023 10:18 [facility] BUN 12 10 - 26 mg/dL 10/22/2023 10:18 [facility] Creatinine 0.62(L) 0.66 - 1.25 mg/dL 10/22/2023 10:18 [facility] eGFR 97 >60 mL/min/1.73 m2 10/22/2023 10:18 [facility] Blood VENOUS BLOOD / Unknown Venipuncture / Unknown 10/22/2023 9:38 EDT 10/22/2023 9:58 EDT us Phong Obrien MD CHEMISTRY & BLOOD GAS ORDERA BLES Final Result [facility] [address] [place] [address] * (ABNORMAL) COMPLETE BLOOD COUNT AND DIFFERENTIAL (10/22/2023 9:38 EDT) WBC 7.95 4.00 - 10.40 K/cmm 10/22/2023 10:00 [facility] RBC 4.52 4.36 - 5.78 M/cmm 10/22/2023 10:00 [facility] Hemoglobin 13.6(L) 13.8 - 17.3 g/dL 10/22/2023 10:00 [facility] HCT 40.2 39.5 - 50.2 % 10/22/2023 10:00 [facility] MCV 89 81 - 95 fL 10/22/2023 10:00 [facility] MCH 30.1 27.6 - 33.0 pg 10/22/2023 10:00 [facility] MCHC 33.8 32.8 - 36.4 g/dL 10/22/2023 10:00 [facility] RDW-CV 12.8 <14.2 % 10/22/2023 10:00 [facility] RDW-SD 42.0 <46.0 fl 10/22/2023 10:00 [facility] PLT 174 141 - 377 K/cmm 10/22/2023 10:00 [facility] MPV 9.8 9.5 - 12.7 fL 10/22/2023 10:00 [facility] % Neutrophils 76.8 % 10/22/2023 10:00 [facility] % Lymphocytes 12.1 % 10/22/2023 10:00 [facility] % Monocytes 10.6 % 10/22/2023 10:00 [facility] % Eosinophils 0.1 % 10/22/2023 10:00 [facility] % Basophils 0.3 % 10/22/2023 10:00 [facility] % Immature Grans 0.1 <0.9 % 10/22/19 10:00 [facility] Absolute Neutrophils 6.11 2.20 - 8.85 K/cmm 10/22/2023 10:00 [facility] Absolute Lymphocytes 0.96(L) 1.09 - 3.30 K/cmm 10/22/2023 10:00 [facility] Absolute Monocytes 0.84(H) 0.10 - 0.80 K/cmm 10/22/2023 10:00 [facility] Absolute Eosinophils 0.01(L) 0.03 - 0.61 K/cmm 10/22/2023 10:00 [facility] ABS Basophils 0.02 0.01 - 0.11 K/cmm 10/22/2023 10:00 EDT [facility] Absolute Immature Grans 0.01 0.00 - 0.06 K/cmm 10/22/2023 10:00 EDT [facility] Type of Differential: Auto 10/22/2023 10:00 EDT [facility] Blood VENOUS BLOOD / Unknown Venipuncture / Unknown 10/22/2023 9:38 EDT 10/22/2023 9:58 EDT us Phong Obrien MD PACKAGES & DNA PROBE ORDERAB LES Final Result [facility] [address] [place] [address] * EKG 12-LEAD (10/22/2023 9:31 EDT) 10/22/2023 9:31 EDT Narrative [facility] - 10/22/2023 18:20 EDT ? [facility] ? Test Date: ?2023-10-22 Pat Name: ? SANDEE ADITYA ?Department: ? Room: ? C02 Gender: ? Male ? Extrusion Manager: ?? DL : ?1945 ? Requested By: MARINA Duggan Order Number: [id number] ? Reading MD: ?? RENETTA FROST MD ? Measurements Intervals ?[facility] ? Rate: ? 88 ? P: ?81 RI: ? 194 ?QRS: ?-44 QRSD: ? 92 ? T: ?58 QT: ? 330 ? QTc: ?399 ? Interpretive Statements Normal sinus rhythm Left axis deviation Incomplete right bundle branch block No previous ECG available for comparison I reviewed the tracing and have either agreed or edited the findings in this report. Electronically Signed On 10-22-2023 18:20:19 EDT by RENETTA FROST MD. Procedure Note Renetta Frost MD - 10/22/2023 [facility] [place]: 2023-10-22 Pat Name: SANDEE LOAIZA Department: Room: C02 Gender: Male Extrusion Manager: JOSELITO : 1945 Requested By: MARINA Duggan Order Number: [id number] Reading MD: RENETTA FROST MD Measurements Intervals [place] [facility] Rate: 88 P: 81 RI: 194 QRS: -44 QRSD: 92 T: 58 QT: 330 QTc: 399 Interpretive Statements Normal sinus rhythm Left axis deviation Incomplete right bundle branch block No previous ECG available for comparison I reviewed the tracing and have either agreed or edited the findings inthis report. Electronically Signed On 10-22-2023 18:20:19 EDT by RENETTA NORRIS. us Phong Obrien MD CARDIAC ECG ORDERABLES Final Result [facility] documented in this encounter Visit Diagnoses Diagnosis Wheezing- Primary Wheezing Hypoxemia Acute respiratory failure with hypoxia ([facility]) [J96.01] Acute respiratory failure Chronic obstructive pulmonary disease with acute exacerbation ([facility]) Obstructive chronic bronchitis with exacerbation Acute respiratory failure with hypoxia ([facility]) [J96.01] Acute respiratory failure Hypoxemia documented in this encounter Admitting Diagnoses Diagnosis Acute respiratory failure with hypoxia ([facility]) Acute respiratory failure documented in this encounter Administered Medications Inactive Administered Medications - up to 3 most recent administrations Medication Order MAR Action Action Date Dose Rate Site albuterol nebulizer solution 2.5 mg 2.5 mg, nebulization, EVERY 2 HOURS PRN, Starting on Mon10/22/23 at 1808, Until Mon10/23/23 at 1440, Wheezing, Routine, Release azithromycin (ZITHROMAX) tablet 500 mg 500 mg, oral, NOW X1, 1 dose, On Mon10/22/23 at 1545, STAT Given 10/22/2023 15:39 EDT 500 mg azithromycin (ZITHROMAX) tablet 500 mg 500 mg, oral, DAILY, 2 doses, First dose on Mon10/23/23 at 0900, Last dose on Mon10/24/23 at 0900, Routine, Release Given 10/23/2023 8:57 EDT 500 mg cefepime (MAXIPIME) 2,000 mg in sodium chloride (NS MBP) 50 mL IVPB 2,000 mg, intravenous, Administer over 30 Minutes, EVERY 8 HOURS, 21 doses, First dose on Mon10/23/23 at 0000, Last dose on Mon10/29/23 at 1600, Type of Therapy: Empiric, Suspected Indication (Select all that apply): Sepsis or septic shock of unknown source, Routine Given 10/23/2023 7:56 EDT 2,000 mg Given 10/23/2023 0:32 EDT 2,000 mg enoxaparin (LOVENOX) injection 40 mg 40 mg, subcutaneous, DAILY, First dose on Mon10/23/23 at 0800, Until Discontinued, Routine Given 10/23/2023 7:56 EDT 40 mg guaiFENesin (MUCINEX) SR tablet 600 mg 600 mg, oral, 2 TIMES DAILY, First dose on Mon10/22/23 at 2100, Until Discontinued, Routine Given 10/23/2023 8:57 EDT 60 0 mg Given 10/22/2023 22:48 EDT 600 mg iohexoL (OMNIPAQUE 350) solution 100 mL 100 mL, intravenous, Once in imaging, 1 dose, Starting on [place] 10/22/23 at 1331, Until Mon10/22/23 at 1346, Routine Given 10/22/2023 13:46 EDT 100 mL ipratropium-albuteroL (DUONEB) 0.5 mg-3 mg(2.5 mg base)/3 mL nebulizer solution 3 mL 3 mL, nebulization, NOW X1, 1 dose, On [place] 10/22/23 at 1500, STAT Given 10/22/2023 14:57 EDT 3 mL ipratropium-albuteroL (DUONEB) 0.5 mg-3 mg(2.5 mg base)/3 mL nebulizer solution 3 mL 3 mL, nebulization, 4 TIMES DAILY, First dose (after last modification) on [place] 10/22/23 at 2100, Until Discontinued, Routine, Release Given 10/23/2023 8:32 EDT 3 mL Given 10/22/2023 20:37 EDT 3 mL ipratropium-albuteroL (DUONEB) 0.5 mg-3 mg(2.5 mg base)/3 mL nebulizer solution 6 mL 6 mL, nebulization, NOW X1, 1 dose, On [place] 10/22/23 at 1545, STAT Given 10/22/2023 15:31 EDT 6 mL lactated ringers (LR) infusion at 250 mL/hr, 1,000 mL, intravenous, CONTINUOUS, Starting on Mon10/23/23 at 0130, Until Mon10/23/23 at 0533, Routine New Bag 10/23/2023 1:34 EDT 1,000 mL 250 mL/hr lactated ringers BOLUS 500 mL 500 mL, intravenous, NOW X1, 1 dose, On [place] 10/22/23 at 1900, Routine New Bag 10/22/2023 18:51 EDT 500 mL lactated ringers BOLUS 500 mL 500 mL, intravenous, NOW X1, 1 dose, On [place] 10/22/23 at 2145, Routine New Bag 10/22/2023 22:52 EDT 500 mL methylPREDNISolone sod suc(PF) (SOLU-MEDROL) injection 125 mg 125 mg, intravenous, NOW X1, 1 dose, On [place] 10/22/23 at 1545, STAT Given 10/22/2023 15:35 EDT 125 mg predniSONE (DELTASONE) tablet 40 mg 40 mg, oral, DAILY, 4 doses, First dose on Mon10/23/23 at 0900, Last dose on Mon10/26/23 at 0900, Routine, Release Given 10/23/2023 8:57 EDT 40 mg simvastatin (ZOCOR) tablet 10 mg 10 mg, oral, DAILY, First dose on Mon10/23/23 at 0900, Until Discontinued, Routine Given 10/23/2023 8:57 EDT 10 mg sodium chloride 0.9 % BOLUS 500 mL 500 mL, intravenous, NOW X1, 1 dose, On [place] 10/22/23 at 1700, STAT New Bag 10/22/2023 16:57 EDT 500 mL vancomycin (VANCOCIN) 1,500 mg in sodium chloride (NS) 0.9 % 250 mL IVPB 1,500 mg, intravenous, Administer over 90 Minutes, Once (Time Specified), 1 dose, On [place] 10/22/23 at 2200, Type of Therapy: Empiric, Suspected Indication (Select all that apply): Sepsis or septic shock of unknown source, Routine Given 10/22/2023 23:09 EDT 1,500 mg documented in this encounter Discontinued Medications Medication Sig Discontinue Reason Start Date End Da te simethicone (GAS-X EXTRA STRENGTH) 125 mg chewable tablet Take by mouth. 10/23/2023 pantoprazole (PROTONIX) 40 mg tablet Take 1 Tablet by mouth daily. 10/23/2023 hyoscyamine (LEVBID) 0.375 mg CR tablet TAKE 1 TABLET BY MOUTH EVERY 12 HOURS DIRECTED 10/23/2023 documented as of this encounter Historical Medications * This list may reflect changes made after this encounter. simvastatin (ZOCOR) 10 mg tablet Take 1 Tablet by mouth daily. amoxicillin (AMOXIL) 500 mg capsule TAKE FOUR CAPSULES BY MOUTH ONE HOUR BEFORE APPOINTMENT simethicone (GAS-X EXTRA STRENGTH) 125 mg chewable tablet Take by mouth. 10/22 pantoprazole (PROTONIX) 40 mg tablet Take 1 Tablet by mouth daily. hyoscyamine (LEVBID) 0.375 mg CR tablet TAKE 1 TABLET BY MOUTH EVERY 12 HOURS DIRECTED 4 added in this encounter Active and Recently Administered Medications Times are shown in EDT. Scheduled Medication Order 10/21/2023 10/22/2023 10/23/2023 azithromycin (ZITHROMAX) tablet 500 mg (COMPLETED) 500 mg, oral, NOW X1, 1 dose, On 10/22/23 at 1545, STAT 1539 (Given - Provider: Marylu Crow RN) azithromycin (ZITHROMAX) tablet 500 mg 500 mg, oral, DAILY, 2 doses, First dose on Mon10/23/23 at 0900, Last dose on Mon10/24/23 at 0900, Routine, Release 0857 (Given - Provid er: Lyssa Alfonso RN) cefepime (MAXIPIME) 2,000 mg in sodium chloride (NS MBP) 50 mL IVPB (CANCELED) 2,000 mg, intravenous, Administer over 30 Minutes, EVERY 8 HOURS, 21 doses, First dose on Mon10/23/23 at 0000, Last dose on Mon10/29/23 at 1600, Type of Therapy: Empiric, Suspected Indication (Select all that apply): Sepsis or septic shock of unknown source, Routine 0032 (Given - Provid er: Denisse Adams RN)0756 (Given - Provider: Lyssa Alfonso RN) enoxaparin (LOVENOX) injection 40 mg 40 mg, subcutaneous, DAILY, First dose on Mon10/23/23 at 0800, Until Discontinued, Routine 0756 (Given - Provid er: Lyssa Alfonso, JAYNE) guaiFENesin (MUCINEX) SR tablet 600 mg 600 mg, oral, 2 TIMES DAILY, First dose on 10/22/23 at 2100, Until Discontinued, Routine 2248 (Given - Provider: Denisse Adams, JAYNE) 0857 (Given - Provider: Lyssa Alfonso, JAYNE) iohexoL (OMNIPAQUE 350) solution 100 mL (COMPLETED) 100 mL, intravenous, Once in imaging, 1 dose, Starting on 10/22/23 at 1331, Until 10/22/23 at 1346, Routine 1346 (Given - Provider: Kristin Allen) ipratropium-albuteroL (DUONEB) 0.5 mg-3 mg(2.5 mg base)/3 mL nebulizer solution 3 mL (COMPLETED) 3 mL, nebulization, NOW X1, 1 dose, On 10/22/23 at 1500, STAT 1457 (Given - Provider: Kemi Ha, RT) ipratropium-albuteroL (DUONEB) 0.5 mg-3 mg(2.5 mg base)/3 mL nebulizer solution 3 mL 3 mL, nebulization, 4 TIMES DAILY, First dose (after last modification) on 10/22/23 at 2100, Until Discontinued, Routine, Release 2036 (Given - Provider: Rj Poole, RT) 0832 (Given - Provider: Carito Frankel, RT)1200 (Canceled Entry - Provider: Batch Job User Admin - Comment: Automatically canceled at discontinue of medication order) ipratropium-albuteroL (DUONEB) 0.5 mg-3 mg(2.5 mg base)/3 mL nebulizer solution 6 mL (COMPLETED) 6 mL, nebulization, NOW X1, 1 dose, On 10/22/23 at 1545, STAT 1531 (Given - Provider: Kemi Ha, RT) lactated ringers BOLUS 500 mL (COMPLETED) 500 mL, intravenous, NOW X1, 1 dose, On 10/22/23 at 1900, Routine 1851 (New Bag - Provider: Marylu Crow RN) lactated ringers BOLUS 500 mL (COMPLETED) 500 mL, intravenous, NOW X1, 1 dose, On 10/22/23 at 2145, Routine 2252 (New Bag - Provider: Denisse Adams RN) methylPREDNISolone sod suc(PF) (SOLU-MEDROL) injection 125 mg (COMPLETED) 125 mg, intravenous, NOW X1, 1 dose, On Mon10/22/23 at 1545, STAT 1535 (Given - Provider: Marylu Crow RN) predniSONE (DELTASONE) tablet 40 mg 40 mg, oral, DAILY, 4 doses, First dose on Mon10/23/23 at 0900, Last dose on Mon10/26/23 at 0900, Routine, Release 0857 (Given - Provid er: Lyssa Alfonso RN) simvastatin (ZOCOR) tablet 10 mg 10 mg, oral, DAILY, First dose on Mon10/23/23 at 0900, Until Discontinued, Routine 0857 (Given - Provid er: Lysas Alfonso RN) sodium chloride 0.9 % BOLUS 500 mL (COMPLETED) 500 mL, intravenous, NOW X1, 1 dose, On [place] 10/22/23 at 1700, STAT 1657 (New Bag - Provider: Marylu Crow RN)1735 (IV Stopped - Provider: Marylu Crow RN) vancomycin (VANCOCIN) 1,500 mg in sodium chloride (NS) 0.9 % 250 mL IVPB (COMPLETED) 1,500 mg, intravenous, Administer over 90 Minutes, Once (Time Specified), 1 dose, On [place] 10/22/23 at 2200, Type of Therapy: Empiric, Suspected Indication (Select all that apply): Sepsis or septic shock of unknown source, Routine 2309 (Given - Provider: Denisse Adams RN) Continuous Medication Order 10/21/2023 10/22/2023 10/23/2023 lactated ringers (LR) infusion (CANCELED) at 250 mL/hr, 1,000 mL, intravenous, CONTINUOUS, Starting on Mon10/23/23 at 0130, Until Mon10/23/23 at 0533, Routine 0134 (New Bag - Prov ider: Denisse Adams RN) PRN Medication Order 10/21/2023 10/22/2023 10/23/2023 acetaminophen (TYLENOL) tablet 650 mg 650 mg, oral, EVERY 6 HOURS PRN, Starting on Mon10/22/23 at 1832, Until Mon10/23/23 at 1440, Pain, Fever, Routine albuterol nebulizer solution 2.5 mg 2.5 mg, nebulization, EVERY 2 HOURS PRN, Starting on 10/22/23 at 1808, Until Mon10/23/23 at 1440, Wheezing, Routine, Release calcium carbonate (TUMS) tablet 500 mg (200 mg elemental calcium) 2 Tablet 2 Tablet, oral, EVERY 6 HOURS PRN, Starting on 10/22/23 at 1832, Until Mon10/23/23 at 1440, Indigestion, Routine lidocaine (PF) 10 mg/mL (1 %) injection 2 mg 2 mg, intradermal, PRN, 4 doses, Starting on 10/22/23 at 1832, Until Mon10/23/23 at 1440, peripheral intravenous catheter placement, Routine polyethylene glycol 3350 (MIRALAX) packet 17 g 17 g, oral, DAILY PRN, Starting on 10/22/23 at 1832, Until Mon10/23/23 at 1440, Constipation, Routine ramelteon (ROZEREM) tablet 8 mg 8 mg, oral, AT BEDTIME PRN, Starting on 10/22/23 at 1832, Until Mon10/23/23 at 1440, Sleep, Routine senna (SENOKOT) tablet 2 Tablet 2 Tablet, oral, AT BEDTIME PRN, Starting on 10/22/23 at 1832, Until Mon10/23/23 at 1440, Constipation, Routine documented in this encounter Orders Medications Ordered That Jona ht Not Have Been Administered Count Last Ordered Date First Ordered Date acetaminophen (TYLENOL) tablet 650 mg albuterol nebulizer solution 2.5 mg 10/21 calcium carbonate (TUMS) tab let 500 mg (200 mg elemental calcium) 2 Tablet 1 10/22/2023 ipratropium-albuteroL (DUONE B) 0.5 mg-3 mg(2.5 mg base)/3 mL nebulizer solution 3 mL 10/22/2023 lidocaine (PF) 10 mg/mL (1 % ) injection 2 mg 1 10/22/2023 polyethylene glycol 3350 (ME RALAX) packet 17 g 10/22/2023 ramelteon (ROZEREM) tablet 8 mg 1 06/30/202 4 senna (SENOKOT) tablet 2 Tablet 1 4 vancomycin (VANCOCIN) in 0.9 % sodium chloride IVPB premix solution 750 mg 1 10/22/2023 VANCOMYCIN IV PHARMACY TO DOSE 1 10/22/2023 Nursing Count Last Ordered Date First Orde red Date CALL HOSPITALIST FOR ADM/REF LILIANA TO [facility] NURSE 1 10/22/2023 PAGE RESPIRATORY THERAPY 2 10/22/2023 Respiratory Care Count Last Ordered Date First Ordered Date RESPIRATORY CARE EVALUATION ONLY 1 10/22/19 24 Admission Count Last Ordered Date First Orde red Date ADMIT TO INPATIENT 1 10/22/2023 Discharge Count Last Ordered Date First Orde red Date DISCHARGE PATIENT 1 10/23/2023 documented in this encounter Additional Health Concerns Infection Onset Date Last Indicated Resolved Time R/O COVID-19 10/22/2023 10/22/2023 10/22/2023 17:5 3 EDT Respiratory rule-out 10/23/2023 10/23/2023 024 22:15 EDT documented as of this encounter Care Teams Machine Heel Seat Fitter Relationship Specialty Start Date End Date Unknown, Provider, PCP - General 10/22/23 10/22/23 Juan Michael MD [address] [facility] [address] [place] [address] PCP - General Emergency Medicine 10/23/23 documented as of this encounter
--- OUTSIDE RECORDS SUMMARY | 2024-04-15 15:01 | XMS_ITS | Referral Summary ---
Author Organization [facility] Address [address] [place] [address] Care Team Providers Care Bureau Director Name Role Phone Juan Michael MD Primary Care Provider [phone] Allergies No known active allergies Medications amoxicillin (AMOXIL) 500 mg capsule TAKE FOUR CAPSULES BY MOUTH ONE HOUR BEFORE APPOINTMENT Active simvastatin (ZOCOR) 10 mg tablet Take 1 Tablet by mouth daily. Active Active Problems Problem Noted Date Diagnosed Date Acute respiratory failure with hypoxia ([facility]) [J96.01] 10/22/2023 Wheezing 10/22/2023 Hypoxemia 10/22/2023 Gastroesophageal reflux disease 09/26/2022 Benign prostatic hyperplasia 09/26/2022 Essential hypertension 02/20/2020 Chronic obstructive pulmonary disease ([facility]) 02/10/2020 Overview (10/22/2023): [facility]: J44.9 Subclinical hypothyroidism 07/03/2019 Atherosclerosis of aorta ([facility]) 07/23/2015 Overview (10/22/2023): [facility] Hyperlipidemia 03/27/2015 Social History Tobacco Use Types Packs/Day Years Used Date Smoking Tobacco: Former Cigarettes Q uit: 1973 Smokeless Tobacco: Former Quit: 04/24/1971 Tobacco Cessation:Counseling Given: No [facility] Utilities Answer Date Recorded In the [...] any time in the past 12 m [facility], were you homeless or living in a residential (including now)? No 10/22/2023 Interpersonal Safety Answer [...] 8:38 EDT Sexual Orientation Not on file Last Filed [...] Body Mass Index 20.56 10/22/2023 0941 EDT Functional Status * Are you deaf or do you have serious difficulty hearing? Answer Date of Assessment Author No 10/22/2023 21:00 EDT Felix Hopson RN * Are you blind or do you have serious difficulty seeing, even when wearing glasses? Answer Date of Assessment Author No 10/22/2023 21:00 EDFelix Vides RN * Do you have serious difficulty [...] Date of Assessment Author No 10/22/2023 21:00 Felix Holloway RN Mental Status * Because of a physical, mental, or emotional condition, do you have serious difficulty concentrating, remembering, or making decisions? (5 years old or older) Answer Entry Date Author No 10/22/2023 21:00 Felix Holloway RN Plan of Treatment Not on file Insurance [facility] MEDICARE [facility] MEDICARE Advance Directives For more information, please contact: [phone] * Limitation of Treatment (Latest Code Status on File) Date Activated Date Inactivated Comments 10/22/2023 18:06 10/23/2023 14:40 Question Answer Comments When the patient has NO PULSE: DNR When the patient HAS A PULSE and is in respiratory distress/failure: Trial Period Trial period of (choose one or both): intubation non - invasive ventilation Who Made the Decision? Patient Care Teams Bureau Director Relationship Specialty Start Date End Date Juan Michael MD [address] [facility] [address] [place] [address] PCP - General Emergency Medicine 10/23/23
[2024-04-15 15:30] LABS: HCT 42.8 % (40.0-50.0); HGB 14.2 g/dL (13.5-17.5); MCH 30.3 pg (27.0-33.0); MCHC 33.2 % (32.0-36.0); MCV 92 fL (80-95); MPV 10.8 fL (8.0-11.0); Platelet Count 223 10^3/uL (130-400); RBC 4.68 10^6/uL (4.36-5.78); RDW 12.8 % (11.8-14.1); RDW-SD 42.2 fL; WBC 6.89 10^3/uL (4.4-10.8)
[2024-04-15 16:44] LABS: ALT 18 U/L (16-63); AST 24 U/L (15-37); Albumin 3.9 g/dL (3.4-5.0); Alkaline Phosphatase 107 U/L (46-116); Anion Gap 6.2 mmol/L (3-11); BUN 15 mg/dL (7-18); CO2 30.8 mmol/L (21.0-32.0); CREATININE 0.9 mg/dL (0.70-1.30); Calcium 9.3 mg/dL (8.5-10.1); Calculated LDL 92 mg/dL (<100); Chloride 102 mmol/L (98-107); Cholesterol 169 mg/dL (<200); Glucose 94 mg/dL (74-106); HDL Cholesterol 64 mg/dL (40-60); Sodium 139 mmol/L (136-145); TSH (W/Ref FT4) 3.37 uIU/mL (0.36-3.74); Total Protein 7.7 g/dL (6.4-8.2); Triglyceride 68 mg/dL (<150)
== END 2024-04-15 14:59 | disposition home or self-care (01) ==
LOC: NCHCN 14:58
PROVIDERS: PCP Family Medicine; Visit Provider Family Medicine
DX: Z00.00 Encounter for general adult medical examination without abnormal findings (principal)
CPT/HCPCS: 80053; 80061; 85027; 84443

== ENCOUNTER 2024-11-19 13:04 | Outpatient (REF) | payer MEDICARE, SELFPAY ==
[2024-11-19 15:46] LABS: Abs Immature Grans 0.02 10^3/uL (0.0-0.06); HCT 39.0 % (40.0-50.0); HGB 13.3 g/dL (13.5-17.5); Immature Grans % 0.2 %; MCH 30.6 pg (27.0-33.0); MCHC 34.1 % (32.0-36.0); MCV 90 fL (80-95); MPV 10.5 fL (8.0-11.0); Platelet Count 204 10^3/uL (130-400); RBC 4.35 10^6/uL (4.36-5.78); RDW 12.9 % (11.8-14.1); RDW-SD 42.4 fL; WBC 8.07 10^3/uL (4.4-10.8)
[2024-11-19 16:05] LABS: ALT 24 U/L (16-63); AST 22 U/L (15-37); Albumin 3.8 g/dL (3.4-5.0); Alkaline Phosphatase 89 U/L (46-116); Anion Gap 2.9 mmol/L (3-11); BUN 14 mg/dL (7-18); Bilirubin, Total 0.5 mg/dL (0.2-1.0); CO2 32.1 mmol/L (21.0-32.0); Calcium 9.5 mg/dL (8.5-10.1); Chloride 101 mmol/L (98-107); Estimated GFR 85.80 (mL/min/1.73m2); Glucose 98 mg/dL (74-106); Potassium 4.5 mmol/L (3.5-5.1); Sodium 136 mmol/L (136-145); Total Protein 7.3 g/dL (6.4-8.2)
== END 2024-11-19 13:05 | disposition home or self-care (01) ==
LOC: NCHCN 13:04
PROVIDERS: PCP Family Medicine; Visit Provider Family Medicine
DX: R42 Dizziness and giddiness (principal)
CPT/HCPCS: 80053; 85025

== ENCOUNTER 2024-12-03 13:04 | Outpatient (REF) | payer MEDICARE, SELFPAY ==
[2024-12-03 16:14] LABS: Abs Immature Grans 0.01 10^3/uL (0.0-0.06); HCT 35.7 % (40.0-50.0); HGB 12.2 g/dL (13.5-17.5); Immature Grans % 0.2 %; MCH 30.7 pg (27.0-33.0); MCHC 34.2 % (32.0-36.0); MCV 90 fL (80-95); MPV 10.1 fL (8.0-11.0); Platelet Count 233 10^3/uL (130-400); RBC 3.98 10^6/uL (4.36-5.78); RDW 13.0 % (11.8-14.1); RDW-SD 42.8 fL; WBC 5.39 10^3/uL (4.4-10.8)
== END 2024-12-03 13:05 | disposition home or self-care (01) ==
LOC: NCHCN 13:04
PROVIDERS: PCP Family Medicine; Visit Provider Family Medicine
DX: Z08 Encounter for follow-up examination after completed treatment for malignant neoplasm (principal); Z87.19 Personal history of other diseases of the digestive system
CPT/HCPCS: 85025

== ENCOUNTER 2024-12-11 14:50 | Outpatient (REF) | payer MEDICARE, SELFPAY ==
[2024-12-11 15:50] LABS: Iron 61 ug/dL (65-175); Total Iron Binding Capacity 277 ug/dL (250-450); Transferrin Sat 22 % (20-55)
[2024-12-11 16:01] LABS: Folate > 20.0 ng/mL (8.6-20.0); Vitamin B12 433 pg/mL (193-986)
[2024-12-12 16:05] LABS: Ferritin 596 ng/mL (26-388)
== END 2024-12-11 14:51 | disposition home or self-care (01) ==
LOC: NCHCN 14:50
PROVIDERS: PCP Family Medicine; Visit Provider Family Medicine
DX: D64.9 Anemia, unspecified (principal)
CPT/HCPCS: 82607; 82728; 82746; 83540; 83550

== ENCOUNTER 2025-04-23 09:58 | Outpatient (REF) | payer MEDICARE, SELFPAY ==
[2025-04-23 15:46] LABS: HCT 43.4 % (40.0-50.0); HGB 14.6 g/dL (13.5-17.5); MCH 30.0 pg (27.0-33.0); MCHC 33.6 % (32.0-36.0); MCV 89 fL (80-95); MPV 11.3 fL (8.0-11.0); Platelet Count 201 10^3/uL (130-400); RBC 4.87 10^6/uL (4.36-5.78); RDW 13.1 % (11.8-14.1); RDW-SD 42.7 fL; WBC 5.96 10^3/uL (4.4-10.8)
[2025-04-23 16:23] LABS: ALT 17 U/L (10-49); AST 26 U/L (<34); Albumin 4.3 g/dL (3.2-5.0); Alkaline Phosphatase 91 U/L (46-116); Anion Gap 8.5 mmol/L (3-11); BUN 16 mg/dL (9-23); Bilirubin, Total 0.7 mg/dL (0.2-1.2); CO2 30.5 mmol/L (20.0-31.0); Calcium 9.8 mg/dL (8.3-10.6); Chloride 101 mmol/L (98-107); Cholesterol 159 mg/dL (<200); Glucose 87 mg/dL (74-106); HDL Cholesterol 56 mg/dL (>or=40); Potassium 4.5 mmol/L (3.5-5.1); Sodium 140 mmol/L (136-145); TSH (W/Ref FT4) 3.04 uIU/mL (0.55-4.78); Total Protein 7.4 g/dL (5.7-8.2)
== END 2025-04-23 09:59 | disposition home or self-care (01) ==
LOC: NCHCN 09:58
PROVIDERS: PCP Family Medicine; Visit Provider Family Medicine
DX: D64.9 Anemia, unspecified (principal); E78.5 Hyperlipidemia, unspecified; I10 Essential (primary) hypertension; E02 Subclinical iodine-deficiency hypothyroidism
CPT/HCPCS: 80053; 80061; 85027; 84443